=== PATIENT | male | born 1985 | race Caucasian/White ===

== ENCOUNTER 2016-09-28 02:55 | Inpatient (IN) | payer OTHER ==
[~2016-09-28] VITALS: Ht 172.7 cm; Wt 83.0 kg
[2016-09-28 03:57] LABS: BASO # 0.1 K/mm3 (0.0-0.2); EOS # 0.4 K/mm3 (0.0-0.50); EOS % 4.6 % (0.0-3.0); LARGE UNSTAINED CELL # 0.2 K/mm3 (0.0-0.4); LARGE UNSTAINED CELL % 1.8 % (0.0-4.0); LYMPH % 22.4 % (24.0-44.0); MEAN CORPUSCULAR HEMOGLOBIN 29.9 pg (27.0-33.0); MEAN CORPUSCULAR HGB CONC 33.4 g/dl (32.0-36.5); MEAN CORPUSCULAR VOLUME 89.6 fl (80.0-96.0); MONO # 0.5 K/mm3 (0.0-0.8); MONO % 6.5 % (0.0-5.0); NEUTROPHILS # 5.2 K/mm3 (1.8-7.7); NEUTROPHILS % 63.7 % (36.0-66.0); PLATELET COUNT, AUTOMATED 146 k/mm3 (150-450); RED CELL DISTRIBUTION WIDTH 12.7 % (11.5-14.5); WHITE BLOOD COUNT 8.2 K/mm3 (4.0-10.0)
[2016-09-28] MEDS ORDERED: ONDANSETRON 4MG/2ML VIAL (J2405) As Ordered ONE (04:05)
[2016-09-28] MEDS ORDERED: MORPHINE 4 MG/ML 1ML SYRINGE As Ordered ONE ×2 (04:06→05:56)
[2016-09-28 04:21] LABS: ANION GAP 7 MEQ/L (8-16); BLOOD UREA NITROGEN 16 MG/DL (7-18); CALCIUM LEVEL 8.7 MG/DL (8.5-10.1); CARBON DIOXIDE LEVEL 31 MEQ/L (21-32); CHLORIDE LEVEL 104 MEQ/L (98-107); CREATININE FOR GFR 0.98 MG/DL (0.70-1.30); GLOMERULAR FILTRATION RATE > 60.0 (>60); GLUCOSE, FASTING 96 MG/DL (70-105); POTASSIUM SERUM 4.3 MEQ/L (3.5-5.1); SODIUM LEVEL 142 MEQ/L (136-145)
[2016-09-28] MEDS ORDERED: ISOVUE-370 76% 100ML VIAL (Q9967) As Ordered ONE (04:46)
--- NOTE | 2016-09-28 05:10 | REPUSA ---
CLINICAL HISTORY: Edema. COMMENTS: Real time sonography with duplex doppler of the left lower extremity was performed with attention to the major deep venous structures. Evaluation reveals the left common femoral, superficial femoral and popliteal veins to be completely compressible without intraluminal thrombus. There is normal spontaneous phasic flow and augmentation. The greater saphenous/common femoral vein junction is patent. IMPRESSION: No evidence of DVT in left lower extremity.. Thank you for your kind referral of this patient.
--- NOTE | 2016-09-28 05:30 | REPUSA ---
CLINICAL HISTORY: Dyspnea, exclude PE. TECHNIQUE: Multiple incremental axial, coronal and oblique images are obtained from the thoracic inle t to the upper abdomen. Intravenous contrast material was administered as per pulmonary embolism prot ocol. COMMENTS: Segmental branches pulmonary emboli in the right lower lobe. Associated small right pleural effusion. Associated subpleural consolidation in the right lower lobe. There is excellent opacification of the remaining pulmonary arterial system without evidence for anot her pulmonary embolism. Aorta is of normal caliber without evidence for dissection or aneurysm. There is no evidence of pleural or parenchymal mass. There are no pleural effusions. There is no evid ence of hilar or mediastinal lymphadenopathy. The heart and great vessels are within normal limits. Images of the upper abdomen demonstrate no evidence of adrenal mass. The bony structures are free of lytic or blastic lesions. IMPRESSION: Segmental branches pulmonary emboli in the right lower lobe. Associated small right pleural effusion. Associated subpleural consolidation in the right lower lobe. Findings are suggestive of developing in farction. Thank you for your kind referral of this patient.
[2016-09-28] MEDS ORDERED: TYLE1TAB5 PO (06:37)
[2016-09-28 06:39] LABS: INR 1.05
[2016-09-28] MEDS ORDERED: HEPARIN SOD (PORCINE) 5000 UNITS/ML VIAL IV PRN (07:00)
[2016-09-28] MEDS ORDERED: HEPARIN 25,000 UNITS/250 ML D5W BAG (100 UNITS/ML) As Ordered ONE (07:08)
[2016-09-28] MEDS ORDERED: HEPARIN SOD (PORCINE) 5000 UNITS/ML VIAL As Ordered ONE (07:08)
[2016-09-28] MEDS ORDERED: ACETAMINOPHEN 325 MG TAB As Ordered ONE ×2 (07:42→11:32)
[2016-09-28] MEDS ORDERED: MORPHINE 4 MG/ML 1ML SYRINGE IV PRN (08:00)
[2016-09-28] MEDS ORDERED: MOM 30ML SUSPENSION UDC PO PRN (08:00)
--- NOTE | 2016-09-28 08:47 | HPE ---
DATE OF ADMISSION: 09/28/2016 PRIMARY CARE PROVIDER: Teto Cormier CHIEF COMPLAINT: Chest pain. BRIEF SUMMARY OF PRESENTATION: This is a 31-year-old who approximately one week ago developed left leg pain that became worse on Sunday. Yesterday at 5:00 p.m., he had pain in his right chest that felt as though someone had stuck a knife in his side. He went to bed at 2:00 a.m. He woke up when he could barely breathe. Came to the emergency department for evaluation and was found to have a right sided pulmonary embolism and I was called for admission. 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 In the last week he has driven at least 24 hours and in fact one night slept in his car. He has no previous history of clots. No history of bleeding disorder and is exceedingly healthy. He had an allergy to the small pox vaccine. Currently takes no medications, herbal, or supplements. PAST MEDICAL HISTORY: Has no significant past medical history. 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 SOCIAL HISTORY: He is a nonsmoker. Does not drink alcohol. 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 Is originally from [place]. FAMILY HISTORY: Notable for mother with diabetes at age 47. Father has had multiple myocardial infarctions at age 48. Brother is 29 with allergies. Sister who is 27, alive and well. REVIEW OF SYSTEMS: Notable for no headache. No visual change. No runny nose. No sore throat. No neck pain. No cough. He is short of breath. He is having trouble taking deep breaths due to pain on the right side. No palpitations. No orthopnea. No paroxysmal nocturnal dyspnea. No abdominal pain. No change in bowel or bladder habits. No focal weakness. No history of seizures. Otherwise, unremarkable. PHYSICAL EXAMINATION: VITAL SIGNS: Blood pressure 110/64, pulse is 52, respiratory rate is 16, temperature 98.4, pulse oximetry 96% on room air. Weight 77.1 kg. Body Mass Index (BMI) is 25.8. He is awake, appropriately interactive, pleasantly conversant, appears uncomfortable. HEENT: Head is normocephalic. Sinuses nontender. Pupils are equal, round and reactive. Anicteric, not injected. Nasal septum is midline. Mucous membranes are moist. Neck is supple. LUNGS: Breathing is symmetrical, diminished throughout. I:E ratio is 1:3. No wheezes, rales or rhonchi. He is clearly taking smaller breaths than normal. HEART: Irregular rate and rhythm. Bradycardic on my examination. ABDOMEN: Soft, doughy, nontender. EXTREMITIES: No lower extremity edema. DERMATOLOGIC EXAM: Notable for a number of high quality tattoos. PSYCHIATRIC: Normal mood and affect. LABORATORY DATA: White cell count 8.2, hemoglobin 16.2, platelets 146. INR 1.05, sodium 142, potassium 4.3, chloride 104, carbon dioxide 31, BUN 16, creatinine 0.98, glucose of 96, CK 61, troponin I less than 0.02. ASSESSMENT: This is a 31-year-old gentleman with a right sided pulmonary embolism and infarction. The patient will require a greater than two midnight hospital stay to complete his course of therapy. PLAN: 1. Hematologic. The patient has pulmonary embolism with no evidence of lower extremity deep vein thrombosis (DVT). No obvious risk factors apart from driving prolonged distances. Testicular examination done by myself was unremarkable. There is no family history of blood clots. We will continue the patient with intravenous heparin, as suggested by the covering inner tube cutter last night. We have started Coumadin, and we will send a hypercoagulability workup, results of which may not all be available before his discharge. He is at risk for pneumonia and bleeding based on his splinting and infarct, respectively. I believe at this point the risk of pneumonia is significant and I have ordered a half dose of Toradol and an incentive spirometer. I have encouraged him to be up and walking around. 2. Deep vein thrombosis (DVT) prophylaxis will be full dose heparin. I have signed this patient out to Dr. Mccoy.
[2016-09-28 08:50] VITALS: BP 124/74
--- NOTE | 2016-09-28 08:59 | ECGEPIP ---
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
--- NOTE | 2016-09-28 12:17 | EDDOCDS ---
Physician Documentation [facility] Name: Abdelrahman Gonzalez Age: 31 yrs Sex: Male : 1985 Arrival Date: 09/28/2016 Time: 02:55 Bed 14 Private MD: Disposition: 09/28/16 06:23 Hospitalization ordered by Dionicio Plummer for Inpatient Admission. Preliminary diagnosis is Pulmonary embolism - right, with infarction. - Bed requested for 4 [place]. - Status is Inpatient Admission. ms2 - Condition is Stable. - Problem is an acute exacerbation. - Symptoms have improved. Historical: - Allergies: small pox vacine; - Home Meds: 1. none - PMHx: none; - PSHx: cauliflower ear repair twice; - Social history: Smoking status: Patient states was never smoker of tobacco. No barriers to communication noted, The patient speaks fluent [place], Speaks appropriately for age. - Family history: Not pertinent. - : The pt / caregiver states he / she is not on anticoagulants. Home medication list is obtained from the patient. - Exposure Risk Screening:: None identified. Vital Signs: 09/28 03:03 BP 125 / 79; Pulse 85; Resp 20; Temp 98.4(TE); Pulse Ox 99% on R/A; Weight 77.11 kg / sls1 170 lbs; Height 5 ft. 8 in. (172.72 cm); Pain 8/10; 03:39 BP 111 / 72 (auto/); cf2 03:41 Pulse 62 MON; Pulse Ox 98% ; cf2 03:41 BP 110 / 64; Resp 16; Pain 3/10; cf2 03:43 Pulse 62 MON; Pulse Ox 98% ; cf2 03:50 Pulse 60 MON; Pulse Ox 97% ; cf2 03:57 Pulse 58 MON; Pulse Ox 97% ; cf2 04:04 Pulse 56 MON; Pulse Ox 97% ; cf2 04:11 Pulse 56 MON; Pulse Ox 96% ; cf2 04:18 Pulse 56 MON; Pulse Ox 96% ; cf2 04:26 Pulse 54 MON; Pulse Ox 95% ; cf2 04:29 Pulse 54 MON; Pulse Ox 96% ; cf2 04:41 Pulse 50 MON; Pulse Ox 95% ; cf2 04:49 Pulse 54 MON; Pulse Ox 96% ; cf2 05:01 Pulse 54 MON; Pulse Ox 95% ; cf2 05:11 Pulse 48 MON; Pulse Ox 95% ; cf2 05:21 Pulse 52 MON; Pulse Ox 96% ; cf2 05:33 Pulse 48 MON; Pulse Ox 96% ; cf2 05:43 Pulse 48 MON; Pulse Ox 96% ; cf2 05:49 Pulse 52 MON; Pulse Ox 96% ; cf2 07:22 BP 132 / 71 (auto/); ead 07:29 Pulse 84 MON; Resp 16; Pulse Ox 98% on R/A; ead 07:44 BP 139 / 66 (auto/); ead 07:45 Pulse 72 MON; Pulse Ox 96% ; ead 08:24 BP 128 / 75 (auto/); ead 08:25 Pulse 78 MON; Pulse Ox 95% ; ead 08:30 Pain 3/10; ead 08:37 BP 124 / 74 (auto/); ead 08:38 Pulse 78 MON; Pulse Ox 96% ; ead 09:07 BP 133 / 63 (auto/); ead 09:08 Pulse 76 MON; Pulse Ox 94% ; ead 09:37 BP 107 / 54 (auto/); ead 09:38 Pulse 74 MON; Resp 16; Pulse Ox 97% on R/A; ead 10:52 BP 138 / 59; Pulse 74; Resp 18; Temp 98.8(TE); Pulse Ox 94% on R/A; Pain 7/10; rn1 11:40 BP 152 / 77; Pulse 79; Resp 20 S; Temp 96(T); Pulse Ox 95% on R/A; ms2 03:03 Body Mass Index 25.85 (77.11 kg, 172.72 cm) sls1 MDM: 03:03 ECG WITH READING ER PHYS+CARDIAG ordered. EDMS 03:50 NS 0.9% 1000 ml IV at 100 mL/hr continuous ordered. mm11 03:50 Ondansetron 4 mg IVP once ordered. 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 mm11 03:50 IV Saline Lock ordered. mm11 03:50 Rhythm Strip to chart ordered. mm11 03:50 Undress patient appropriately for examination ordered. mm11 03:50 morphine 4 mg IVP every 30 minutes; Document pain score/vitals after each dose (Hold if mm11 SBP < 90mmHg) x2 ordered. 03:51 Basic Metabolic Profile Ordered. EDMS 03:51 CBC with Diff Ordered. EDMS 03:51 Cardiac Injury Profile Ordered. EDMS 03:51 Troponin Ordered. EDMS 03:52 DVT US Lower Ordered. EDMS 04:22 Basic Metabolic Profile Reviewed. mm11 04:22 CBC with Diff Reviewed. mm11 04:22 Troponin Reviewed. mm11 04:24 CT Chest Angio R/O PE Ordered. EDMS 04:44 Basic Metabolic Profile Reviewed. mm11 04:44 Cardiac Injury Profile Reviewed. mm11 04:44 Troponin Reviewed. mm11 05:22 Financial registration complete. pm4 05:22 [facility] Payment Agreement was scanned into [employer] and attached to record. pm4 06:21 heparin (Thrombolytic Protocol, 12 units/kg/hr)) 99262 units IV at 1000 units/hr once; mm11 Max. dose 1000units/hr. No Lovenox past 18hrs/ draw labs. ordered. 06:21 heparin (Thrombolytic Protocol, 60 units/kg)) 4000 units IVP once; max 4000 units. mm11 Ensure no Lovenox in past 18hr, labs drawn ordered. 06:22 BED REQUEST+ADM ordered. EDMS 06:22 Pt & Aptt Ordered. EDMS 06:35 DVT US Lower Reviewed. mm11 06:35 CT Chest Angio R/O PE Reviewed. mm11 07:07 Pt & Aptt Reviewed. mm11 07:08 Acetaminophen Tablet 650 mg PO once ordered. mm11 07:47 ANTINUCLEAR ANTIBODIES Ordered. EDMS 07:48 ANTI-CARDIOLIPIN ANTIBODIES Ordered. EDMS 07:48 ANTI-NEUTROPHIL CYTOPLASMIC AB Ordered. EDMS 07:48 ANTI-SJOGRENS A & B ANTIBODIES Ordered. EDMS 07:48 ERYTHROCYTE SEDIMENTATION RATE Ordered. EDMS 07:48 C REACTIVE PROTEIN QUANTITATIV Ordered. EDMS 07:48 PROTEIN C ANTIGEN Ordered. EDMS 07:48 PROTEIN S ANTIGEN(TOT&FREE) Ordered. EDMS 07:48 ANTI THROMBIN 3 PANEL (AG/AC) Ordered. EDMS 07:48 HOMOCYSTEINE Ordered. EDMS 07:48 FACTOR V LEIDEN Ordered. EDMS 07:48 FACTOR II PROTHROMBIN GENE AN Ordered. EDMS 07:48 PARTIAL THROMBOPLASTIN TIME Ordered. EDMS 07:49 PARTIAL THROMBOPLASTIN TIME Ordered. EDMS 07:49 PARTIAL THROMBOPLASTIN TIME Ordered. EDMS 07:50 Admission / Observation Status ordered. EDMS 07:56 REGULAR DIET ordered. EDMS 08:29 Lupus Type Anticoagulant Ordered. EDMS 11:38 Acetaminophen Tablet 650 mg PO once ordered. ms2 Administered Medications: 04:10 Drug: NS 0.9% 1000 ml [sodium chloride 0.9 % intravenous solution] Route: IV; Rate: 100 cf2 mL/hr; Site: left antecubital; 07:15 Follow up: IV Status: Completed infusion; IV Intake: 1000ml ; 1L NS found to be infused ead upon this nurse assuming care of pt. 04:10 Drug: Ondansetron 4 mg [ondansetron HCl 2 mg/mL intravenous solution (2 mL)] Route: cf2 IVP; Site: left antecubital; 06:28 Follow up: Response: Pain is decreased cf2 04:10 Drug: morphine 4 mg [morphine 4 mg/mL intravenous cartridge (1 mL)] Route: IVP; Site: cf2 left antecubital; 06:00 Drug: morphine 4 mg [morphine 4 mg/mL intravenous cartridge (1 mL)] Route: IVP; Site: cf2 left antecubital; 06:28 Follow up: Response: Pain is decreased cf2 07:26 Drug: heparin (Thrombolytic Protocol, 60 units/kg)) 4000 units [heparin (porcine) 5,000 ead unit/mL injection solution (0.8 mL)] {Co-Signature: diaz (Christen Lopez RN).} Route: IVP; Site: left antecubital; 07:50 Follow up: Response: No Adverse Reaction ead 07:28 Drug: heparin (Thrombolytic Protocol, 12 units/kg/hr)) 54270 units [heparin (porcine) ead 25,000 unit/250 mL (100 unit/mL) in dextrose 5 % IV] {Co-Signature: diaz (Christen Lopez RN).} Route: IV; Rate: 1000 units/hr; Site: left antecubital; 07:45 Drug: Acetaminophen 650 mg [acetaminophen 325 mg tablet (2 tabs)] Route: PO; ead 08:30 Follow up: Pain 3/10 Adult; Response: No Adverse Reaction; Pain is decreased ead 11:38 Drug: Acetaminophen 650 mg [acetaminophen 325 mg tablet (2 tabs)] Route: PO; ms2 Signatures: Dispatcher [employer] EDMS Erma Archibald RN RN kcs Harish Bingham RN RN ms2 Luis Avelar, DO DO mm11 Daisy Pizano RN RN sls1 Harish Callahan, RN RN mts Val WhiteRN RN cf2 Amor Gregorio, Reg Reg pm4 Deandra Lord RN, RN jjr The chart was reviewed and I authenticate all verbal orders and agree with the evaluation and treatment provided.Corrections: (The following items were deleted from the chart) 07:56 07:47 2 GRAM SODIUM DIET ordered. EDMS EDMS 08:29 07:47 Lupus Type Anticoagulant ordered. EDMS EDMS Attachments: 05:22 [facility] Payment Agreement pm4 MTDD
--- NOTE | 2016-09-28 12:17 | EDDOCDS ---
Nurse's Notes [facility] Name: Abdelrahman Gonzalez Age: 31 yrs Sex: Male : 1985 Arrival Date: 09/28/2016 Time: 02:55 Bed 14 Private MD: Diagnosis: Pulmonary embolism-right, with infarction Presentation: 09/28 03:01 Presenting complaint: Patient states: started with a pain in his leg last week that sls1 traveled to his knee, traveled to rib area tonight and now is generalized to his chest, reports pain constant, sharp worse with breathing. Aspirin was not taken prior to arrival. 03:01 Acuity: NATALIE Level 3 sls1 03:01 Method Of Arrival: Walkin/Carried/Asstd sls1 03:02 Suicide/Homicide risk assessment- the patient denies having any suicidal and/or sls1 homicidal ideations and does not present with any other emotional, behavioral or mental health complaints. 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 Transition of care: patient was not received from another setting of care. 03:25 Adult Sepsis Screening: The patient does not have new or worsening altered mentation. cf2 Patient's respiratory rate is less than 22. Systolic blood pressure is greater than 100. Patient has a qSOFA score of 0- Negative Sepsis Screen. Triage Assessment: 03:03 General: Appears in no apparent distress, Behavior is appropriate for age, cooperative. sls1 Pain: Location: chest Pain currently is 7 out of 10 on a pain scale. Pain does not radiate. Pt Declines HIV testing. The patient is triaged at the bedside. See Assessment in Nurses Notes section of ED record. Neurological: No deficits noted. Cardiovascular: Chest pain is described as Pain is 8 out of 10 on a pain scale. radiates Does not radiate. episodes are continuous began tonight is aggravated by breathing. Respiratory: Reports shortness of breath at rest on exertion. Derm: No deficits noted. Historical: - Allergies: small pox vacine; - Home Meds: 1. none - PMHx: none; - PSHx: cauliflower ear repair twice; - Social history: Smoking status: Patient states was never smoker of tobacco. No barriers to communication noted, The patient speaks fluent Turkish, Speaks appropriately for age. - Family history: Not pertinent. - : The pt / caregiver states he / she is not on anticoagulants. Home medication list is obtained from the patient. - Exposure Risk Screening:: None identified. Screenin:30 Screening information is obtained from the patient. Fall risk: No risks identified. cf2 Assistance ADL's: requires no assistance with activities of daily living. Abuse/DV Screen: The patient / caregiver reports he/she is: not in a situation that causes fear, pain or injury. Nutritional screening: No deficits noted. Advance Directives: Further advance directive information is declined. home support is adequate. Assessment: 03:30 General: Appears in no apparent distress, comfortable, Behavior is appropriate for age, cf2 cooperative. Pain: Location: chest. Neurological: No deficits noted. EENT: No deficits noted. Cardiovascular: No deficits noted. Rhythm is regular. Respiratory: No deficits noted. GI: No deficits noted. : No deficits noted. Derm: No deficits noted. Musculoskeletal: No deficits noted. Injury Description: No known injury. 06:49 Reassessment: Patient appears in no apparent distress at this time. Patient states cf2 symptoms have not improved. Adult Sepsis Screening: The patient does not have new or worsening altered mentation. Patient's respiratory rate is less than 22. Systolic blood pressure is greater than 100. Patient has a qSOFA score of 0- Negative Sepsis Screen. 07:28 General: Appears in no apparent distress, comfortable, Behavior is appropriate for age, ead cooperative. Pain: Location: anterior aspect of right upper chest and right breast. Neurological: Level of Consciousness is awake, alert, obeys commands, Oriented to person, place, time. Cardiovascular: Rhythm is sinus rhythm. Respiratory: Reports pain with respiration. Derm: Skin is pink, warm & dry. 07:31 General: Dr. Plummer at bedside to examine pt. Heparin drip infusing as ordered and ead verified by second nurse. . 08:30 General: Appears in no apparent distress, comfortable, Behavior is appropriate for age, ead cooperative. Neurological: Level of Consciousness is awake, alert, Oriented to person, place, time, Reports headache has improved after tylenol. Cardiovascular: Rhythm is sinus rhythm. Respiratory: Airway is patent Respiratory effort is even, unlabored. Derm: Skin is pink, warm & dry. 09:35 General: Appears in no apparent distress, comfortable, Behavior is appropriate for age, ead cooperative, pleasant, pt updated on bed status for admission. Cardiovascular: Rhythm is sinus rhythm. Respiratory: Airway is patent Respiratory effort is even, unlabored. Derm: Skin is pink, warm & dry. 10:30 General: Appears in no apparent distress, comfortable, Behavior is appropriate for age, ead cooperative. Neurological: No deficits noted. Cardiovascular: Rhythm is sinus rhythm. Respiratory: Airway is patent Respiratory effort is even, unlabored. Derm: Skin is pink, warm & dry. 11:00 General: SBAR faxed and tubed to PCU. ead 11:36 Adult Sepsis Screening: The patient does not have new or worsening altered mentation. ms2 Patient's respiratory rate is less than 22. Systolic blood pressure is greater than 100. Patient has a qSOFA score of 0- Negative Sepsis Screen. General: Appears in no apparent distress, Behavior is cooperative. Neurological: Level of Consciousness is awake, alert, obeys commands. Respiratory: No deficits noted. Airway is patent Respiratory effort is even, unlabored, Respiratory pattern is regular, symmetrical. Derm: Skin is pink, warm & dry. Musculoskeletal: Range of motion intact in all extremities. 11:38 General: pt medicated for headache--6/10 headache and 8 10 chest if deep inspiration. ms2 Neurological: Level of Consciousness is awake, alert, obeys commands. Respiratory: No deficits noted. Airway is patent Respiratory effort is even, unlabored, Respiratory pattern is regular, symmetrical. GI: Abdomen is flat, non- distended. Derm: Skin is pink, warm & dry. Musculoskeletal: Range of motion intact in all extremities. Vital Signs: 03:03 BP 125 / 79; Pulse 85; Resp 20; Temp 98.4(TE); Pulse Ox 99% on R/A; Weight 77.11 kg; sls1 Height 5 ft. 8 in. (172.72 cm); Pain 8/10; 03:39 BP 111 / 72 (auto/); cf2 03:41 Pulse 62 MON; Pulse Ox 98% ; cf2 03:41 BP 110 / 64; Resp 16; Pain 3/10; cf2 03:43 Pulse 62 MON; Pulse Ox 98% ; cf2 03:50 Pulse 60 MON; Pulse Ox 97% ; cf2 03:57 Pulse 58 MON; Pulse Ox 97% ; cf2 04:04 Pulse 56 MON; Pulse Ox 97% ; cf2 04:11 Pulse 56 MON; Pulse Ox 96% ; cf2 04:18 Pulse 56 MON; Pulse Ox 96% ; cf2 04:26 Pulse 54 MON; Pulse Ox 95% ; cf2 04:29 Pulse 54 MON; Pulse Ox 96% ; cf2 04:41 Pulse 50 MON; Pulse Ox 95% ; cf2 04:49 Pulse 54 MON; Pulse Ox 96% ; cf2 05:01 Pulse 54 MON; Pulse Ox 95% ; cf2 05:11 Pulse 48 MON; Pulse Ox 95% ; cf2 05:21 Pulse 52 MON; Pulse Ox 96% ; cf2 05:33 Pulse 48 MON; Pulse Ox 96% ; cf2 05:43 Pulse 48 MON; Pulse Ox 96% ; cf2 05:49 Pulse 52 MON; Pulse Ox 96% ; cf2 07:22 BP 132 / 71 (auto/); ead 07:29 Pulse 84 MON; Resp 16; Pulse Ox 98% on R/A; ead 07:44 BP 139 / 66 (auto/); ead 07:45 Pulse 72 MON; Pulse Ox 96% ; ead 08:24 BP 128 / 75 (auto/); ead 08:25 Pulse 78 MON; Pulse Ox 95% ; ead 08:30 Pain 3/10; ead 08:37 BP 124 / 74 (auto/); ead 08:38 Pulse 78 MON; Pulse Ox 96% ; ead 09:07 BP 133 / 63 (auto/); ead 09:08 Pulse 76 MON; Pulse Ox 94% ; ead 09:37 BP 107 / 54 (auto/); ead 09:38 Pulse 74 MON; Resp 16; Pulse Ox 97% on R/A; ead 10:52 BP 138 / 59; Pulse 74; Resp 18; Temp 98.8(TE); Pulse Ox 94% on R/A; Pain 7/10; rn1 11:40 BP 152 / 77; Pulse 79; Resp 20 S; Temp 96(T); Pulse Ox 95% on R/A; ms2 03:03 Body Mass Index 25.85 (77.11 kg, 172.72 cm) [facility] Vitals: 03:03 Log In Time: September 28, 2016 at 02:55. [facility] ED Course: 02:56 Patient visited by Kaitlyn Schulz RegJesse hs2 02:56 Patient moved to Waiting hs2 03:01 Patient moved to Triage 3 sls1 03:02 Triage Initiated sls1 03:06 Patient moved to 14 sls1 03:14 Patient visited by Quinton Orozco PCA. jmv 03:14 EKG done. (by ED staff). Reviewed by Tita Avelar DO. jmv 03:25 Val White,ARTURO is Primary Nurse. cf2 03:25 Patient visited by Val White,ARTURO. cf2 03:25 Patient visited by Val White,ARTURO. cf2 03:29 Patient visited by Val White RN. cf2 03:30 The patient / caregiver is instructed regarding the plan of care and ED course. Patient cf2 has correct armband on for positive identification. Placed in gown. Bed in low position. Call light in reach. Side rails up X 1. Side rails up X2. groundwater monitoring technician on. Pulse ox on. NIBP on. Property :Personal belongings accompany Pt. Door closed. Noise minimized. Visitors limited. Lights dimmed. Moved to private room. Verbal reassurance given. Warm blanket given. Pillow given. Head of bed elevated. Diet: Patient is NPO. 03:30 No procedures done that require assistance. cf2 03:33 Patient visited by Val White RN. cf2 03:40 Tita Avelar DO is Attending Physician. mm11 03:40 Patient visited by Tita Avelar DO. mm11 03:41 Inserted saline lock: 20 gauge in left antecubital area and blood collected. The cf2 patient tolerated the procedure well. 03:49 Patient visited by Tita Avelar DO. mm11 03:53 Patient visited by Chidi Stroud PCA. mdr 03:53 groundwater monitoring technician on. Pulse ox on. NIBP on. mdr 04:10 Patient visited by Val White RN. cf2 04:26 Patient moved to Ultrasound br3 04:41 Patient moved to 14 br3 05:02 Patient visited by Val White RN. cf2 05:12 Patient visited by Val White RN. cf2 05:22 [facility] Payment Agreement was scanned into [employer] and attached to record. pm4 05:31 Patient name changed from Abdelrahman\S\\S\Zararauskas\S\ to Abdelrahman\S\Pepe\S\Jelenaatakas. EDMS 05:40 DVT US Lower Returned. EDMS 05:40 CT Chest Angio R/O PE Returned. EDMS 05:56 Patient visited by Val White,ARTURO. cf2 06:23 Dionicio Plummer MD is Hospitalizing Provider. mm11 06:24 Patient visited by Val White RN. cf2 06:49 Patient visited by Val White RN. cf2 06:59 Deandra Lord,ARTURO is Primary Nurse. ead 09:01 EKG-ADULT Returned. EDMS 09:45 Patient visited by Deandra Lord RN. ead 11:21 Patient visited by Harish Bingham RN. ms2 11:27 Patient visited by Harish Bingham RN. ms2 11:27 floor ready for pt. ms2 11:40 The patient / caregiver is instructed regarding the plan of care and ED course. ms2 11:40 IV is patent, is intact, is free of redness or swelling. solution is infusing as ms2 ordered. heparin drip on a pump. 11:46 Harish Bingham,ARTURO is Primary Nurse. ms2 Administered Medications: 04:10 Drug: NS 0.9% 1000 ml [sodium chloride 0.9 % intravenous solution] Route: IV; Rate: 100 cf2 mL/hr; Site: left antecubital; 07:15 Follow up: IV Status: Completed infusion; IV Intake: 1000ml ; 1L NS found to be infused ead upon this nurse assuming care of pt. 04:10 Drug: Ondansetron 4 mg [ondansetron HCl 2 mg/mL intravenous solution (2 mL)] Route: cf2 IVP; Site: left antecubital; 06:28 Follow up: Response: Pain is decreased cf2 04:10 Drug: morphine 4 mg [morphine 4 mg/mL intravenous cartridge (1 mL)] Route: IVP; Site: cf2 left antecubital; 06:00 Drug: morphine 4 mg [morphine 4 mg/mL intravenous cartridge (1 mL)] Route: IVP; Site: cf2 left antecubital; 06:28 Follow up: Response: Pain is decreased cf2 07:26 Drug: heparin (Thrombolytic Protocol, 60 units/kg)) 4000 units [heparin (porcine) 5,000 ead unit/mL injection solution (0.8 mL)] {Co-Signature: diaz (Christen Lopez RN).} Route: IVP; Site: left antecubital; 07:50 Follow up: Response: No Adverse Reaction ead 07:28 Drug: heparin (Thrombolytic Protocol, 12 units/kg/hr)) 46018 units [heparin (porcine) ead 25,000 unit/250 mL (100 unit/mL) in dextrose 5 % IV] {Co-Signature: diaz (Christen Lopez RN).} Route: IV; Rate: 1000 units/hr; Site: left antecubital; 07:45 Drug: Acetaminophen 650 mg [acetaminophen 325 mg tablet (2 tabs)] Route: PO; ead 08:30 Follow up: Pain 10 Adult; Response: No Adverse Reaction; Pain is decreased ead 11:38 Drug: Acetaminophen 650 mg [acetaminophen 325 mg tablet (2 tabs)] Route: PO; ms2 Intake: 07:15 IV: 1000.00ml; Total: 1000.00ml. ead 11:40 PO: 60.00ml; Total: 1060.00ml. ms2 11:43 PO: 460.00ml; IV: 42.50ml; Total: 1562.50ml. ms2 Output: 11:43 Urine: 800.00ml (Voided); Total: 800.00ml. ms2 Order Results: Lab Order: Basic Metabolic Profile; SPEC'M 09/28/16 03:47 Test: GLUCOSE, FASTING; Value: 96; Range: 70-105; Units: MG/DL; Status: F Test: BLOOD UREA NITROGEN; Value: 16; Range: 7-18; Units: MG/DL; Status: F Test: CREATININE FOR GFR; Value: 0.98; Range: 0.70-1.30; Units: MG/DL; Status: F Test: GLOMERULAR FILTRATION RATE; Value: > 60.0; Range: >60; Status: F Test: SODIUM LEVEL; Value: 142; Range: 136-145; Units: MEQ/L; Status: F Test: POTASSIUM SERUM; Value: 4.3; Range: 3.5-5.1; Units: MEQ/L; Status: F Test: CHLORIDE LEVEL; Value: 104; Range: 98-107; Units: MEQ/L; Status: F Test: CARBON DIOXIDE LEVEL; Value: 31; Range: 21-32; Units: MEQ/L; Status: F Test: ANION GAP; Value: 7; Range: 8-16; Abnormal: Below low normal; Units: MEQ/L; Status: F Test: CALCIUM LEVEL; Value: 8.7; Range: 8.5-10.1; Units: MG/DL; Status: F Test Note: ; Units are mL/min/1.73 m2 Chronic Kidney Disease Staging per NKF: Stage I & II GFR >=60 Normal to Mildly Decreased Stage III GFR 30-59 Moderately Decreased Stage IV GFR 15-29 Severely Decreased Stage V GFR <15 Very Little GFR Left ESRD GFR <15 on NON CATEGORICAL PRESCHOOL TEACHER Lab Order: CBC with Diff; SPEC'M 09/28/16 03:47 Test: WHITE BLOOD COUNT; Value: 8.2; Range: 4.0-10.0; Units: K/mm3; Status: F Test: RED BLOOD COUNT; Value: 5.41; Range: 4.30-6.10; Units: M/mm3; Status: F Test: HEMOGLOBIN; Value: 16.2; Range: 14.0-18.0; Units: g/dl; Status: F Test: HEMATOCRIT; Value: 48.5; Range: 42.0-52.0; Units: %; Status: F Test: MEAN CORPUSCULAR VOLUME; Value: 89.6; Range: 80.0-96.0; Units: fl; Status: F Test: MEAN CORPUSCULAR HEMOGLOBIN; Value: 29.9; Range: 27.0-33.0; Units: pg; Status: F Test: MEAN CORPUSCULAR HGB CONC; Value: 33.4; Range: 32.0-36.5; Units: g/dl; Status: F Test: RED CELL DISTRIBUTION WIDTH; Value: 12.7; Range: 11.5-14.5; Units: %; Status: F Test: PLATELET COUNT, AUTOMATED; Value: 146; Range: 150-450; Abnormal: Below low normal; Units: k/mm3; Status: F Test: NEUTROPHILS %; Value: 63.7; Range: 36.0-66.0; Units: %; Status: F Test: LYMPH %; Value: 22.4; Range: 24.0-44.0; Abnormal: Below low normal; Units: %; Status: F Test: MONO %; Value: 6.5; Range: 0.0-5.0; Abnormal: Above high normal; Units: %; Status: F Test: EOS %; Value: 4.6; Range: 0.0-3.0; Abnormal: Above high normal; Units: %; Status: F Test: BASO %; Value: 1.0; Range: 0.0-1.0; Units: %; Status: F Test: LARGE UNSTAINED CELL %; Value: 1.8; Range: 0.0-4.0; Units: %; Status: F Test: NEUTROPHILS #; Value: 5.2; Range: 1.8-7.7; Units: K/mm3; Status: F Test: LYMPH #; Value: 2.0; Range: 1.5-4.5; Units: K/mm3; Status: F Test: MONO #; Value: 0.5; Range: 0.0-0.8; Units: K/mm3; Status: F Test: EOS #; Value: 0.4; Range: 0.0-0.50; Units: K/mm3; Status: F Test: BASO #; Value: 0.1; Range: 0.0-0.2; Units: K/mm3; Status: F Test: LARGE UNSTAINED CELL #; Value: 0.2; Range: 0.0-0.4; Units: K/mm3; Status: F Lab Order: Cardiac Injury Profile; SPEC'M 09/28/16 03:47 Test: CPK CREATINE PHOSPHOKINASE; Value: 61; Range: 39-308; Units: U/L; Status: F Test: CK-MB VALUE MASS; Value: 1.0; Range: 0.0-3.6; Units: NG/ML; Status: F Test: MB/CK RELATIVE INDEX; Value: 1.63; Range: < OR =4; Status: F Test Note: ; DIAGNOSIS CRITERIA MMB ng/ml Relative Index (RI) NON-AMI < or = 5 N/A CONTRERAS ZONE > 5 < or = 4 AMI > 5 > 4 Lab Order: Troponin; SPEC'M 09/28/16 03:47 Test: TROPONIN I; Value: < 0.02; Range: < 0.10; Units: NG/ML; Status: F Test Note: ; Troponin I Reference Interval for Siemens [place] LOCI: 99th Percentile= 0.00-0.045 ng/ml Risk Stratification: <= 0.10 ng/ml Decreased Risk for Adverse Clinical Events. 0.10-1.50 ng/ml Increased Risk for Adverse Clinical Events. Evaluation of additional criterion and/or repeat testing in 2-6 hours is suggested to rule out myocardial damage. >= 1.50 ng/ml Indicative of Myocardial Injury. Lab Order: Pt & Aptt; [facility] 09/28/16 03:47 Test: PROTHROMBIN TIME; Value: 13.8; Range: 12.3-14.5; Units: SECONDS; Status: F Test: INR; Value: 1.05; Status: F Test: PARTIAL THROMBOPLASTIN TIME; Value: 26.8; Range: 26.6-37.1; Units: SECONDS; Status: F Test Note: ; THERAPUTIC HUMAN INR VALUES INDICATIONS NORMAL RANGES PROPHYLAXIS/TREATMENT OF: VENOUS THROMBOSIS 2.0-3.0 PULMONARY EMBOLISM 2.0-3.0 PREVENTION OF SYSTEMIC EMBOLISM FROM: TISSUE HEART VALVES 2.0-3.0 ACUTE MYOCARDIAL INFARCTION 2.0-3.0 VALVULAR HEART DISEASE 2.0-3.0 ATRIAL FIBRILLATION 2.0-3.0 MECHANICAL VALVES(HIGH RISK) 2.5-3.5 RECURRENT MYOCARDIAL INFARCTION 2.5-3.5 Lab Order: ERYTHROCYTE SEDIMENTATION RATE; [facility] 09/28/16 08:15 Test: ERYTHROCYTE SEDIMENTATION RATE; Value: 8; Range: 0-15; Units: mm/hr; Status: F Lab Order: C REACTIVE PROTEIN QUANTITATIV; [facility] 09/28/16 08:14 Test: C REACTIVE PROTEIN QUANTITATIV; Value: 1.10; Range: 0.00-0.30; Abnormal: Above high normal; Units: MG/DL; Status: F Lab Order: PARTIAL THROMBOPLASTIN TIME; [facility] 09/28/16 08:13 Test: PARTIAL THROMBOPLASTIN TIME; Value: 91.2; Range: 26.6-37.1; Abnormal: Above high normal; Units: SECONDS; Status: F Radiology Order: EKG-ADULT Test: EKG-ADULT REASON FOR EXAMINATION: chest pain;Chest Pain; Stationary ECG Study; [facility] - ED; ; Test Date: 2016-09-28; Pat Name: ABDELRAHMAN GONZALEZ Department:; Room: -; Gender: M Clinical Support Specialist: haider; : 1985 Requested By: TITA Tineo; Order Number: [id number] Reading MD: Carlos A Sandoval; Measurements; Intervals [place]; Rate: 71 P: 32; AR: 175 QRS: 43; QRSD: 102 T: 8; QT: 370; QTc: 405; Interpretive Statements; SINUS RHYTHM; NONSPECIFIC ST T-WAVE ABNORMALITY; NO PRIORS; Electronically Signed On 09-28-2016 8:59:33 EST by Carlos A Sandoval; Radiology Order: DVT US Lower Test: DVT US Lower REASON FOR EXAMINATION: Deformity/Swelling; ; CLINICAL HISTORY: Edema.; COMMENTS:; Real time sonography with duplex doppler of the left lower extremity was performed with attention to; the major deep venous structures.; Evaluation reveals the left common femoral, superficial femoral and popliteal veins to be completely; compressible without intraluminal thrombus. There is normal spontaneous phasic flow and augmentation.; The greater saphenous/common femoral vein junction is patent.; IMPRESSION:; No evidence of DVT in left lower extremity..; Thank you for your kind referral of this patient.; ; Radiology Order: CT Chest Angio R/O PE Test: CT Chest Angio R/O PE REASON FOR EXAMINATION: Chest Pain; ; CLINICAL HISTORY: Dyspnea, exclude PE.; TECHNIQUE: Multiple incremental axial, coronal and oblique images are obtained from the thoracic inle; t to the upper abdomen. Intravenous contrast material was administered as per pulmonary embolism prot; ocol.; COMMENTS:; Segmental branches pulmonary emboli in the right lower lobe.; Associated small right pleural effusion.; Associated subpleural consolidation in the right lower lobe.; There is excellent opacification of the remaining pulmonary arterial system without evidence for anot; her pulmonary embolism. Aorta is of normal caliber without evidence for dissection or aneurysm.; There is no evidence of pleural or parenchymal mass. There are no pleural effusions. There is no evid; ence of hilar or mediastinal lymphadenopathy. The heart and great vessels are within normal limits.; Images of the upper abdomen demonstrate no evidence of adrenal mass.; The bony structures are free of lytic or blastic lesions.; IMPRESSION:; Segmental branches pulmonary emboli in the right lower lobe.; Associated small right pleural effusion.; Associated subpleural consolidation in the right lower lobe. Findings are suggestive of developing in; farction.; Thank you for your kind referral of this patient.; ; Outcome: 06:23 Decision to Hospitalize by Provider. mm11 11:41 Discharge Assessment: patient administered narcotics - yes. Patient was admitted to the [address] or transferred to another facility. The following High Risk Discharge criteria are identified: None. Admitted to Med/Surg accompanied by tech, family with patient, via stretcher, with chart. Condition: stable. CT Study completed. 12:16 Patient left the ED. [facility] [place] Signatures: Dispatcher [employer] EDMS Harish Bingham,RN RN ms2 Tita Avelar, DO DO mm11 Adele Lopez br3 Daisy Pizano RN RN sls1 Deandra Lord,RN RN Antonio Perez rn1 Chidi Stroud, CURING ROOM WORKER CURING ROOM WORKER Kaitlyn Gandhi, Reg Reg hs2 Val White,RN RN cf2 Quinton Orozco, CURING ROOM WORKER CURING ROOM WORKER Amor Ross, Reg Reg pm4 Christen Lopez RN jjr MTDD
[2016-09-28 12:20] VITALS: BP 130/72
[2016-09-28] MEDS: KETOROLAC 30 MG/ML VIAL (J1885) IV PRN ×2 (13:19→21:05)
[2016-09-28] MEDS: SENOKOT S TAB PO SCH ×2 (13:26→21:00)
[2016-09-28] MEDS: HEPARIN DRIP 25,000 UNITS in APPROPRIATE DILUENT 1 EA IV SCH (13:43)
[2016-09-28 14:00] VITALS: BP 122/56
[2016-09-28] MEDS: PERCOCET 5MG/325MG TAB PO PRN (17:42)
[2016-09-28] MEDS: WARFARIN SOD 5 MG TAB PO SCH (17:42)
[2016-09-28 22:00] VITALS: BP 115/58
[2016-09-29] MEDS: PERCOCET 5MG/325MG TAB PO PRN ×2 (03:14→15:02)
[2016-09-29] MEDS: HEPARIN DRIP 25,000 UNITS in APPROPRIATE DILUENT 1 EA IV SCH ×2 (03:23→15:37)
[2016-09-29 04:54] LABS: MEAN CORPUSCULAR HEMOGLOBIN 30.6 pg (27.0-33.0); MEAN CORPUSCULAR HGB CONC 34.4 g/dl (32.0-36.5); MEAN CORPUSCULAR VOLUME 88.8 fl (80.0-96.0); RED CELL DISTRIBUTION WIDTH 11.8 % (11.5-14.5); WHITE BLOOD COUNT 8.8 K/mm3 (4.0-10.0)
[2016-09-29 04:58] LABS: INR 1.11
[2016-09-29 05:06] LABS: ANION GAP 6 MEQ/L (8-16); BLOOD UREA NITROGEN 15 MG/DL (7-18); CALCIUM LEVEL 8.7 MG/DL (8.5-10.1); CARBON DIOXIDE LEVEL 32 MEQ/L (21-32); CHLORIDE LEVEL 103 MEQ/L (98-107); CREATININE FOR GFR 1.02 MG/DL (0.70-1.30); GLOMERULAR FILTRATION RATE > 60.0 (>60); GLUCOSE, FASTING 110 MG/DL (70-105); POTASSIUM SERUM 4.1 MEQ/L (3.5-5.1); SODIUM LEVEL 141 MEQ/L (136-145)
[2016-09-29 06:00] VITALS: BP 111/56
[2016-09-29] MEDS: KETOROLAC 30 MG/ML VIAL (J1885) IV PRN ×2 (07:45→16:27)
[2016-09-29] MEDS: SENOKOT S TAB PO SCH ×2 (08:00→20:07)
--- NOTE | 2016-09-29 13:25 | IPN ---
DATE: 09/29/2016 31-year-old gentleman seen at bedside resting comfortably. Stated that he did have some chest discomfort through the night, worse with movement and deep inspiration and pleuritic in nature. No nausea, vomiting. No change in appetite. Again, he is resting comfortably currently OBJECTIVE: Temperature is 99.2, pulse 80, respiratory rate is 17. He is able speak in complete sentences and does not appear to be labored. Blood pressure 111/56. SPO2 is 96% on room air. GENERAL: The patient appears to be in no acute distress. He is alert, oriented. HEENT: Unremarkable. LUNGS: Diminished breath sounds and wheeze on the right. HEART: Regular rate and rhythm. ABDOMEN: Soft. EXTREMITIES: No edema. No calf tenderness. LABORATORY DATA: White count 8.8, hemoglobin 14.3, platelets 162,000. Sodium 141, potassium 4.1, chloride 103, bicarbonate 32, anion gap 6, BUN is 15, creatinine 1.02, glucose is 110, INR is 1.11, PT 14.4, PTT is 55.3. ASSESSMENT AND PLAN: 1. Pulmonary embolus with pulmonary infarct. He does continue with intermittent pleuritic chest pain, which we will make modifications to this pain regimen. Continue on heparin drip with bridging to Coumadin with INR goal of 2 to 3. He is ambulating well. Encourage him to continue the use of incentive spirometer. 2. Deep vein thrombosis (DVT) prophylaxis. Again, the patient is on bridging doses of heparin and Coumadin. We will continue to follow daily PT, PTT and INR. Once he is therapeutic for 24 hours, we will discontinue the heparin drip. He will likely need to continue on Coumadin therapy for 6 months.
[2016-09-29 14:00] VITALS: BP 114/61
[2016-09-29] MEDS: WARFARIN SOD 5 MG TAB PO SCH (16:27)
[2016-09-29 18:06] LABS: INR 1.21
[2016-09-29 22:00] VITALS: BP 120/61
[2016-09-30] MEDS: PERCOCET 5MG/325MG TAB PO PRN ×3 (02:32→20:39)
[2016-09-30 06:00] VITALS: BP 120/57
[2016-09-30] MEDS: HEPARIN DRIP 25,000 UNITS in APPROPRIATE DILUENT 1 EA IV SCH ×2 (06:26→20:37)
[2016-09-30 06:36] LABS: MEAN CORPUSCULAR HGB CONC 34.6 g/dl (32.0-36.5); MEAN CORPUSCULAR VOLUME 89.7 fl (80.0-96.0); RED CELL DISTRIBUTION WIDTH 11.8 % (11.5-14.5)
[2016-09-30 06:43] LABS: ANION GAP 7 MEQ/L (8-16); BLOOD UREA NITROGEN 15 MG/DL (7-18); CALCIUM LEVEL 8.7 MG/DL (8.5-10.1); CARBON DIOXIDE LEVEL 29 MEQ/L (21-32); CHLORIDE LEVEL 105 MEQ/L (98-107); CREATININE FOR GFR 1.04 MG/DL (0.70-1.30); GLOMERULAR FILTRATION RATE > 60.0 (>60); GLUCOSE, FASTING 113 MG/DL (70-105); POTASSIUM SERUM 3.8 MEQ/L (3.5-5.1); SODIUM LEVEL 141 MEQ/L (136-145)
[2016-09-30] MEDS: SENOKOT S TAB PO SCH ×2 (08:06→20:38)
[2016-09-30] MEDS ORDERED: MOM 30ML SUSPENSION UDC PO PRN (08:30)
[2016-09-30] MEDS: DOCUSATE SODIUM 100 MG CAP PO SCH ×2 (08:43→20:38)
[2016-09-30 08:44] LABS: INR 1.2
--- NOTE | 2016-09-30 09:11 | IPN ---
DATE: 09/30/2016 This is a 31-year-old gentleman seen at bedside. No overnight issues reported. He feels that he is resting more comfortably. The pleuritic chest pain is more anterior now he feels that he has only had 1-2 bouts of it through the evening yesterday. He continues to ambulate. He denies any lightheadedness, dizziness, shortness of breath. OBJECTIVE: Temperature is 97.5, pulse 76, respiratory rate is 16, blood pressure 120/57, SpO2 is 94% on room air. GENERAL: The patient appears to be in no acute distress. He is alert, pleasant to talk to. HEENT: Unremarkable. LUNGS: Diminished right basilar breath sounds, otherwise clear. HEART: Regular rate and rhythm. ABDOMEN: Soft. EXTREMITIES: No edema. No calf tenderness. LABORATORY DATA: White count 8.0, hemoglobin 14.4, platelets 172,000. Sodium 141, potassium 3.8, chloride 105, bicarb 29, anion gap 7, BUN 15, creatinine 1.04, glucose 113, INR is 1.2. ASSESSMENT/PLAN: 1. Pulmonary embolism with pulmonary infarct. He does continue to have some intermittent pleuritic chest pain. He is doing well with the current pain regimen with Percocet and as needed morphine which he has not required any of and he only had two doses of Percocet yesterday. Will continue to bridge with heparin and Coumadin. INR goal was 2-3. I suspect that he will be there in the next 2-3 days. He is encouraged to ambulate. I encouraged incentive spirometer. 2. Deep vein thrombosis (DVT) prophylaxis as outlined above. The patient is being bridged to Coumadin. DISPOSITION: Once he is therapeutic 24 hours on his Coumadin, he will be appropriate for discharge with the followup outpatient with fingersticks an INR checks.
--- NOTE | 2016-09-30 13:16 | EDDOCDS ---
Nurse's Notes [facility] Name: Abdelrahman Gonzalez Age: 31 yrs Sex: Male : 1985 Arrival Date: 09/28/2016 Time: 02:55 Bed 14 Private MD: Diagnosis: Pulmonary embolism-right, with infarction Presentation: 09/28 03:01 Presenting complaint: Patient states: started with a pain in his leg last week that sls1 traveled to his knee, traveled to rib area tonight and now is generalized to his chest, reports pain constant, sharp worse with breathing. Aspirin was not taken prior to arrival. 03:01 Acuity: NATALIE Level 3 sls1 03:01 Method Of Arrival: Walkin/Carried/Asstd sls1 03:02 Suicide/Homicide risk assessment- the patient denies having any suicidal and/or sls1 homicidal ideations and does not present with any other emotional, behavioral or mental health complaints. 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 Transition of care: patient was not received from another setting of care. 03:25 Adult Sepsis Screening: The patient does not have new or worsening altered mentation. cf2 Patient's respiratory rate is less than 22. Systolic blood pressure is greater than 100. Patient has a qSOFA score of 0- Negative Sepsis Screen. Triage Assessment: 03:03 General: Appears in no apparent distress, Behavior is appropriate for age, cooperative. sls1 Pain: Location: chest Pain currently is 7 out of 10 on a pain scale. Pain does not radiate. Pt Declines HIV testing. The patient is triaged at the bedside. See Assessment in Nurses Notes section of ED record. Neurological: No deficits noted. Cardiovascular: Chest pain is described as Pain is 8 out of 10 on a pain scale. radiates Does not radiate. episodes are continuous began tonight is aggravated by breathing. Respiratory: Reports shortness of breath at rest on exertion. Derm: No deficits noted. Historical: - Allergies: small pox vacine; - Home Meds: 1. none - PMHx: none; - PSHx: cauliflower ear repair twice; - Social history: Smoking status: Patient states was never smoker of tobacco. No barriers to communication noted, The patient speaks fluent Malay, Speaks appropriately for age. - Family history: Not pertinent. - : The pt / caregiver states he / she is not on anticoagulants. Home medication list is obtained from the patient. - Exposure Risk Screening:: None identified. Screenin:30 Screening information is obtained from the patient. Fall risk: No risks identified. cf2 Assistance ADL's: requires no assistance with activities of daily living. Abuse/DV Screen: The patient / caregiver reports he/she is: not in a situation that causes fear, pain or injury. Nutritional screening: No deficits noted. Advance Directives: Further advance directive information is declined. home support is adequate. Assessment: 03:30 General: Appears in no apparent distress, comfortable, Behavior is appropriate for age, cf2 cooperative. Pain: Location: chest. Neurological: No deficits noted. EENT: No deficits noted. Cardiovascular: No deficits noted. Rhythm is regular. Respiratory: No deficits noted. GI: No deficits noted. : No deficits noted. Derm: No deficits noted. Musculoskeletal: No deficits noted. Injury Description: No known injury. 06:49 Reassessment: Patient appears in no apparent distress at this time. Patient states cf2 symptoms have not improved. Adult Sepsis Screening: The patient does not have new or worsening altered mentation. Patient's respiratory rate is less than 22. Systolic blood pressure is greater than 100. Patient has a qSOFA score of 0- Negative Sepsis Screen. 07:28 General: Appears in no apparent distress, comfortable, Behavior is appropriate for age, ead cooperative. Pain: Location: anterior aspect of right upper chest and right breast. Neurological: Level of Consciousness is awake, alert, obeys commands, Oriented to person, place, time. Cardiovascular: Rhythm is sinus rhythm. Respiratory: Reports pain with respiration. Derm: Skin is pink, warm & dry. 07:31 General: Dr. Plummer at bedside to examine pt. Heparin drip infusing as ordered and ead verified by second nurse. . 08:30 General: Appears in no apparent distress, comfortable, Behavior is appropriate for age, ead cooperative. Neurological: Level of Consciousness is awake, alert, Oriented to person, place, time, Reports headache has improved after tylenol. Cardiovascular: Rhythm is sinus rhythm. Respiratory: Airway is patent Respiratory effort is even, unlabored. Derm: Skin is pink, warm & dry. 09:35 General: Appears in no apparent distress, comfortable, Behavior is appropriate for age, ead cooperative, pleasant, pt updated on bed status for admission. Cardiovascular: Rhythm is sinus rhythm. Respiratory: Airway is patent Respiratory effort is even, unlabored. Derm: Skin is pink, warm & dry. 10:30 General: Appears in no apparent distress, comfortable, Behavior is appropriate for age, ead cooperative. Neurological: No deficits noted. Cardiovascular: Rhythm is sinus rhythm. Respiratory: Airway is patent Respiratory effort is even, unlabored. Derm: Skin is pink, warm & dry. 11:00 General: SBAR faxed and tubed to PCU. ead 11:36 Adult Sepsis Screening: The patient does not have new or worsening altered mentation. ms2 Patient's respiratory rate is less than 22. Systolic blood pressure is greater than 100. Patient has a qSOFA score of 0- Negative Sepsis Screen. General: Appears in no apparent distress, Behavior is cooperative. Neurological: Level of Consciousness is awake, alert, obeys commands. Respiratory: No deficits noted. Airway is patent Respiratory effort is even, unlabored, Respiratory pattern is regular, symmetrical. Derm: Skin is pink, warm & dry. Musculoskeletal: Range of motion intact in all extremities. 11:38 General: pt medicated for headache--6/10 headache and 8 10 chest if deep inspiration. ms2 Neurological: Level of Consciousness is awake, alert, obeys commands. Respiratory: No deficits noted. Airway is patent Respiratory effort is even, unlabored, Respiratory pattern is regular, symmetrical. GI: Abdomen is flat, non- distended. Derm: Skin is pink, warm & dry. Musculoskeletal: Range of motion intact in all extremities. Vital Signs: 03:03 BP 125 / 79; Pulse 85; Resp 20; Temp 98.4(TE); Pulse Ox 99% on R/A; Weight 77.11 kg; sls1 Height 5 ft. 8 in. (172.72 cm); Pain 8/10; 03:39 BP 111 / 72 (auto/); cf2 03:41 Pulse 62 MON; Pulse Ox 98% ; cf2 03:41 BP 110 / 64; Resp 16; Pain 3/10; cf2 03:43 Pulse 62 MON; Pulse Ox 98% ; cf2 03:50 Pulse 60 MON; Pulse Ox 97% ; cf2 03:57 Pulse 58 MON; Pulse Ox 97% ; cf2 04:04 Pulse 56 MON; Pulse Ox 97% ; cf2 04:11 Pulse 56 MON; Pulse Ox 96% ; cf2 04:18 Pulse 56 MON; Pulse Ox 96% ; cf2 04:26 Pulse 54 MON; Pulse Ox 95% ; cf2 04:29 Pulse 54 MON; Pulse Ox 96% ; cf2 04:41 Pulse 50 MON; Pulse Ox 95% ; cf2 04:49 Pulse 54 MON; Pulse Ox 96% ; cf2 05:01 Pulse 54 MON; Pulse Ox 95% ; cf2 05:11 Pulse 48 MON; Pulse Ox 95% ; cf2 05:21 Pulse 52 MON; Pulse Ox 96% ; cf2 05:33 Pulse 48 MON; Pulse Ox 96% ; cf2 05:43 Pulse 48 MON; Pulse Ox 96% ; cf2 05:49 Pulse 52 MON; Pulse Ox 96% ; cf2 07:22 BP 132 / 71 (auto/); ead 07:29 Pulse 84 MON; Resp 16; Pulse Ox 98% on R/A; ead 07:44 BP 139 / 66 (auto/); ead 07:45 Pulse 72 MON; Pulse Ox 96% ; ead 08:24 BP 128 / 75 (auto/); ead 08:25 Pulse 78 MON; Pulse Ox 95% ; ead 08:30 Pain 3/10; ead 08:37 BP 124 / 74 (auto/); ead 08:38 Pulse 78 MON; Pulse Ox 96% ; ead 09:07 BP 133 / 63 (auto/); ead 09:08 Pulse 76 MON; Pulse Ox 94% ; ead 09:37 BP 107 / 54 (auto/); ead 09:38 Pulse 74 MON; Resp 16; Pulse Ox 97% on R/A; ead 10:52 BP 138 / 59; Pulse 74; Resp 18; Temp 98.8(TE); Pulse Ox 94% on R/A; Pain 7/10; rn1 11:40 BP 152 / 77; Pulse 79; Resp 20 S; Temp 96(T); Pulse Ox 95% on R/A; ms2 03:03 Body Mass Index 25.85 (77.11 kg, 172.72 cm) [facility] Vitals: 03:03 Log In Time: September 28, 2016 at 02:55. [facility] ED Course: 02:56 Patient visited by Kaitlyn Schulz RegJesse hs2 02:56 Patient moved to Waiting hs2 03:01 Patient moved to Triage 3 sls1 03:02 Triage Initiated sls1 03:06 Patient moved to 14 sls1 03:14 Patient visited by Quinton Orozco PCA. jmv 03:14 EKG done. (by ED staff). Reviewed by Tita Avelar DO. jmv 03:25 Val White,ARTURO is Primary Nurse. cf2 03:25 Patient visited by Val White,ARTURO. cf2 03:25 Patient visited by Val White,ARTURO. cf2 03:29 Patient visited by Val White RN. cf2 03:30 The patient / caregiver is instructed regarding the plan of care and ED course. Patient cf2 has correct armband on for positive identification. Placed in gown. Bed in low position. Call light in reach. Side rails up X 1. Side rails up X2. monitoring tech on. Pulse ox on. NIBP on. Property :Personal belongings accompany Pt. Door closed. Noise minimized. Visitors limited. Lights dimmed. Moved to private room. Verbal reassurance given. Warm blanket given. Pillow given. Head of bed elevated. Diet: Patient is NPO. 03:30 No procedures done that require assistance. cf2 03:33 Patient visited by Val White RN. cf2 03:40 Tita Avelar DO is Attending Physician. mm11 03:40 Patient visited by Tita Avelar DO. mm11 03:41 Inserted saline lock: 20 gauge in left antecubital area and blood collected. The cf2 patient tolerated the procedure well. 03:49 Patient visited by Tita Avelar DO. mm11 03:53 Patient visited by Chidi Stroud PCA. mdr 03:53 monitoring tech on. Pulse ox on. NIBP on. mdr 04:10 Patient visited by Val White RN. cf2 04:26 Patient moved to Ultrasound br3 04:41 Patient moved to 14 br3 05:02 Patient visited by Val White RN. cf2 05:12 Patient visited by Val White RN. cf2 05:22 [facility] Payment Agreement was scanned into [employer] and attached to record. pm4 05:31 Patient name changed from Abdelrahman\S\\S\Zararauskas\S\ to Abdelrahman\S\Pepe\S\Aureliakas. EDMS 05:40 DVT US Lower Returned. EDMS 05:40 CT Chest Angio R/O PE Returned. EDMS 05:56 Patient visited by Val White,ARTURO. cf2 06:23 Dionicio Plummer MD is Hospitalizing Provider. mm11 06:24 Patient visited by Val White RN. cf2 06:49 Patient visited by Val White RN. cf2 06:59 Deandra Lord,RN is Primary Nurse. ead 09:01 EKG-ADULT Returned. EDMS 09:45 Patient visited by Deandra Lord RN. ead 11:21 Patient visited by Harish Bingham,ARTURO. ms2 11:27 Patient visited by Harish Bingham,ARTURO. ms2 11:27 floor ready for pt. ms2 11:40 The patient / caregiver is instructed regarding the plan of care and ED course. ms2 11:40 IV is patent, is intact, is free of redness or swelling. solution is infusing as ms2 ordered. heparin drip on a pump. 11:46 Harish Bingham,RN is Primary Nurse. ms2 13:33 T-Sheet-- Draft Copy was scanned into [employer] and attached to record. gb 13:34 Trend VS was scanned into [employer] and attached to record. gb Administered Medications: 04:10 Drug: NS 0.9% 1000 ml [sodium chloride 0.9 % intravenous solution] Route: IV; Rate: 100 cf2 mL/hr; Site: left antecubital; 07:15 Follow up: IV Status: Completed infusion; IV Intake: 1000ml ; 1L NS found to be infused ead upon this nurse assuming care of pt. 04:10 Drug: Ondansetron 4 mg [ondansetron HCl 2 mg/mL intravenous solution (2 mL)] Route: cf2 IVP; Site: left antecubital; 06:28 Follow up: Response: Pain is decreased cf2 04:10 Drug: morphine 4 mg [morphine 4 mg/mL intravenous cartridge (1 mL)] Route: IVP; Site: cf2 left antecubital; 06:00 Drug: morphine 4 mg [morphine 4 mg/mL intravenous cartridge (1 mL)] Route: IVP; Site: cf2 left antecubital; 06:28 Follow up: Response: Pain is decreased cf2 07:26 Drug: heparin (Thrombolytic Protocol, 60 units/kg)) 4000 units [heparin (porcine) 5,000 ead unit/mL injection solution (0.8 mL)] {Co-Signature: diaz (Christen Lopez RN).} Route: IVP; Site: left antecubital; 07:50 Follow up: Response: No Adverse Reaction ead 07:28 Drug: heparin (Thrombolytic Protocol, 12 units/kg/hr)) 69130 units [heparin (porcine) ead 25,000 unit/250 mL (100 unit/mL) in dextrose 5 % IV] {Co-Signature: diaz (Christen Lopez RN).} Route: IV; Rate: 1000 units/hr; Site: left antecubital; 07:45 Drug: Acetaminophen 650 mg [acetaminophen 325 mg tablet (2 tabs)] Route: PO; ead 08:30 Follow up: Pain 11/17 Adult; Response: No Adverse Reaction; Pain is decreased ead 11:38 Drug: Acetaminophen 650 mg [acetaminophen 325 mg tablet (2 tabs)] Route: PO; ms2 Attachments: 13:34 Trend VS gb Intake: 07:15 IV: 1000.00ml; Total: 1000.00ml. ead 11:40 PO: 60.00ml; Total: 1060.00ml. ms2 11:43 PO: 460.00ml; IV: 42.50ml; Total: 1562.50ml. ms2 Output: 11:43 Urine: 800.00ml (Voided); Total: 800.00ml. ms2 Order Results: Lab Order: Basic Metabolic Profile; SPEC'M 09/28/16 03:47 Test: GLUCOSE, FASTING; Value: 96; Range: 70-105; Units: MG/DL; Status: F Test: BLOOD UREA NITROGEN; Value: 16; Range: 7-18; Units: MG/DL; Status: F Test: CREATININE FOR GFR; Value: 0.98; Range: 0.70-1.30; Units: MG/DL; Status: F Test: GLOMERULAR FILTRATION RATE; Value: > 60.0; Range: >60; Status: F Test: SODIUM LEVEL; Value: 142; Range: 136-145; Units: MEQ/L; Status: F Test: POTASSIUM SERUM; Value: 4.3; Range: 3.5-5.1; Units: MEQ/L; Status: F Test: CHLORIDE LEVEL; Value: 104; Range: 98-107; Units: MEQ/L; Status: F Test: CARBON DIOXIDE LEVEL; Value: 31; Range: 21-32; Units: MEQ/L; Status: F Test: ANION GAP; Value: 7; Range: 8-16; Abnormal: Below low normal; Units: MEQ/L; Status: F Test: CALCIUM LEVEL; Value: 8.7; Range: 8.5-10.1; Units: MG/DL; Status: F Test Note: ; Units are mL/min/1.73 m2 Chronic Kidney Disease Staging per NKF: Stage I & II GFR >=60 Normal to Mildly Decreased Stage III GFR 30-59 Moderately Decreased Stage IV GFR 15-29 Severely Decreased Stage V GFR <15 Very Little GFR Left ESRD GFR <15 on SOLICITING FREIGHT AGENT Lab Order: CBC with Diff; SPEC'M 09/28/16 03:47 Test: WHITE BLOOD COUNT; Value: 8.2; Range: 4.0-10.0; Units: K/mm3; Status: F Test: RED BLOOD COUNT; Value: 5.41; Range: 4.30-6.10; Units: M/mm3; Status: F Test: HEMOGLOBIN; Value: 16.2; Range: 14.0-18.0; Units: g/dl; Status: F Test: HEMATOCRIT; Value: 48.5; Range: 42.0-52.0; Units: %; Status: F Test: MEAN CORPUSCULAR VOLUME; Value: 89.6; Range: 80.0-96.0; Units: fl; Status: F Test: MEAN CORPUSCULAR HEMOGLOBIN; Value: 29.9; Range: 27.0-33.0; Units: pg; Status: F Test: MEAN CORPUSCULAR HGB CONC; Value: 33.4; Range: 32.0-36.5; Units: g/dl; Status: F Test: RED CELL DISTRIBUTION WIDTH; Value: 12.7; Range: 11.5-14.5; Units: %; Status: F Test: PLATELET COUNT, AUTOMATED; Value: 146; Range: 150-450; Abnormal: Below low normal; Units: k/mm3; Status: F Test: NEUTROPHILS %; Value: 63.7; Range: 36.0-66.0; Units: %; Status: F Test: LYMPH %; Value: 22.4; Range: 24.0-44.0; Abnormal: Below low normal; Units: %; Status: F Test: MONO %; Value: 6.5; Range: 0.0-5.0; Abnormal: Above high normal; Units: %; Status: F Test: EOS %; Value: 4.6; Range: 0.0-3.0; Abnormal: Above high normal; Units: %; Status: F Test: BASO %; Value: 1.0; Range: 0.0-1.0; Units: %; Status: F Test: LARGE UNSTAINED CELL %; Value: 1.8; Range: 0.0-4.0; Units: %; Status: F Test: NEUTROPHILS #; Value: 5.2; Range: 1.8-7.7; Units: K/mm3; Status: F Test: LYMPH #; Value: 2.0; Range: 1.5-4.5; Units: K/mm3; Status: F Test: MONO #; Value: 0.5; Range: 0.0-0.8; Units: K/mm3; Status: F Test: EOS #; Value: 0.4; Range: 0.0-0.50; Units: K/mm3; Status: F Test: BASO #; Value: 0.1; Range: 0.0-0.2; Units: K/mm3; Status: F Test: LARGE UNSTAINED CELL #; Value: 0.2; Range: 0.0-0.4; Units: K/mm3; Status: F Lab Order: Cardiac Injury Profile; SPEC'M 09/28/16 03:47 Test: CPK CREATINE PHOSPHOKINASE; Value: 61; Range: 39-308; Units: U/L; Status: F Test: CK-MB VALUE MASS; Value: 1.0; Range: 0.0-3.6; Units: NG/ML; Status: F Test: MB/CK RELATIVE INDEX; Value: 1.63; Range: < OR =4; Status: F Test Note: ; DIAGNOSIS CRITERIA MMB ng/ml Relative Index (RI) NON-AMI < or = 5 N/A CONTRERAS ZONE > 5 < or = 4 AMI > 5 > 4 Lab Order: Troponin; [facility] 09/28/16 03:47 Test: TROPONIN I; Value: < 0.02; Range: < 0.10; Units: NG/ML; Status: F Test Note: ; Troponin I Reference Interval for Siemens SQMOS LOCI: 99th Percentile= 0.00-0.045 ng/ml Risk Stratification: <= 0.10 ng/ml Decreased Risk for Adverse Clinical Events. 0.10-1.50 ng/ml Increased Risk for Adverse Clinical Events. Evaluation of additional criterion and/or repeat testing in 2-6 hours is suggested to rule out myocardial damage. >= 1.50 ng/ml Indicative of Myocardial Injury. Lab Order: Pt & Aptt; [facility] 09/28/16 03:47 Test: PROTHROMBIN TIME; Value: 13.8; Range: 12.3-14.5; Units: SECONDS; Status: F Test: INR; Value: 1.05; Status: F Test: PARTIAL THROMBOPLASTIN TIME; Value: 26.8; Range: 26.6-37.1; Units: SECONDS; Status: F Test Note: ; THERAPUTIC HUMAN INR VALUES INDICATIONS NORMAL RANGES PROPHYLAXIS/TREATMENT OF: VENOUS THROMBOSIS 2.0-3.0 PULMONARY EMBOLISM 2.0-3.0 PREVENTION OF SYSTEMIC EMBOLISM FROM: TISSUE HEART VALVES 2.0-3.0 ACUTE MYOCARDIAL INFARCTION 2.0-3.0 VALVULAR HEART DISEASE 2.0-3.0 ATRIAL FIBRILLATION 2.0-3.0 MECHANICAL VALVES(HIGH RISK) 2.5-3.5 RECURRENT MYOCARDIAL INFARCTION 2.5-3.5 Lab Order: ERYTHROCYTE SEDIMENTATION RATE; [facility] 09/28/16 08:15 Test: ERYTHROCYTE SEDIMENTATION RATE; Value: 8; Range: 0-15; Units: mm/hr; Status: F Lab Order: C REACTIVE PROTEIN QUANTITATIV; [facility] 09/28/16 08:14 Test: C REACTIVE PROTEIN QUANTITATIV; Value: 1.10; Range: 0.00-0.30; Abnormal: Above high normal; Units: MG/DL; Status: F Lab Order: PARTIAL THROMBOPLASTIN TIME; [facility] 09/28/16 08:13 Test: PARTIAL THROMBOPLASTIN TIME; Value: 91.2; Range: 26.6-37.1; Abnormal: Above high normal; Units: SECONDS; Status: F Radiology Order: EKG-ADULT Test: EKG-ADULT REASON FOR EXAMINATION: chest pain;Chest Pain; Stationary ECG Study; [facility] - ED; ; Test Date: 2016-09-28; Pat Name: ABDELRAHMAN GONZALEZ Department:; Room: -; Gender: M 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; : 1985 Requested By: TITA Tineo; Order Number: [id number] Reading MD: Carlos A Sandoval; Measurements; Intervals [place]; Rate: 71 P: 32; HI: 175 QRS: 43; QRSD: 102 T: 8; QT: 370; QTc: 405; Interpretive Statements; SINUS RHYTHM; NONSPECIFIC ST T-WAVE ABNORMALITY; NO PRIORS; Electronically Signed On 09-28-2016 8:59:33 EST by Carlos A Sandoval; Radiology Order: DVT US Lower Test: DVT US Lower REASON FOR EXAMINATION: Deformity/Swelling; ; CLINICAL HISTORY: Edema.; COMMENTS:; Real time sonography with duplex doppler of the left lower extremity was performed with attention to; the major deep venous structures.; Evaluation reveals the left common femoral, superficial femoral and popliteal veins to be completely; compressible without intraluminal thrombus. There is normal spontaneous phasic flow and augmentation.; The greater saphenous/common femoral vein junction is patent.; IMPRESSION:; No evidence of DVT in left lower extremity..; Thank you for your kind referral of this patient.; ; Radiology Order: CT Chest Angio R/O PE Test: CT Chest Angio R/O PE REASON FOR EXAMINATION: Chest Pain; ; CLINICAL HISTORY: Dyspnea, exclude PE.; TECHNIQUE: Multiple incremental axial, coronal and oblique images are obtained from the thoracic inle; t to the upper abdomen. Intravenous contrast material was administered as per pulmonary embolism prot; ocol.; COMMENTS:; Segmental branches pulmonary emboli in the right lower lobe.; Associated small right pleural effusion.; Associated subpleural consolidation in the right lower lobe.; There is excellent opacification of the remaining pulmonary arterial system without evidence for anot; her pulmonary embolism. Aorta is of normal caliber without evidence for dissection or aneurysm.; There is no evidence of pleural or parenchymal mass. There are no pleural effusions. There is no evid; ence of hilar or mediastinal lymphadenopathy. The heart and great vessels are within normal limits.; Images of the upper abdomen demonstrate no evidence of adrenal mass.; The bony structures are free of lytic or blastic lesions.; IMPRESSION:; Segmental branches pulmonary emboli in the right lower lobe.; Associated small right pleural effusion.; Associated subpleural consolidation in the right lower lobe. Findings are suggestive of developing in; farction.; Thank you for your kind referral of this patient.; ; Outcome: 06:23 Decision to Hospitalize by Provider. mm11 11:41 Discharge Assessment: patient administered narcotics - yes. Patient was admitted to the [address] or transferred to another facility. The following High Risk Discharge criteria are identified: None. Admitted to Med/Surg accompanied by tech, family with patient, via stretcher, with chart. Condition: stable. CT Study completed. 12:16 [place] left the [place]. [facility] [place] Signatures: Dispatcher [employer] EDMS Harish Bingham RN RN ms2 Antionette Mcclain, Reg Reg gb Tita Avelar, DO DO mm11 Adele Lopez br3 Daisy Pizano RN RN sls1 Deandra Lord,Antonio Limon RN rn1 Chidi Stroud, BIOLOGY MANAGER BIOLOGY MANAGER Kaitlyn Gandhi, Reg Reg hs2 Val White,RN RN cf2 Quinton Orozco, BIOLOGY MANAGER BIOLOGY MANAGER Amor Ross, Reg Reg pm4 Christen Lopez RN jjr Chart Complete MTDD
--- NOTE | 2016-09-30 13:16 | EDDOCDS ---
Physician Documentation [facility] Name: Abdelrahman Gonzalez Age: 31 yrs Sex: Male : 1985 Arrival Date: 09/28/2016 Time: 02:55 Bed 14 Private MD: Disposition: 09/28/16 06:23 Hospitalization ordered by Dionicio Plummer for Inpatient Admission. Preliminary diagnosis is Pulmonary embolism - right, with infarction. - Bed requested for 4 [place]. - Status is Inpatient Admission. ms2 - Condition is Stable. - Problem is an acute exacerbation. - Symptoms have improved. Historical: - Allergies: small pox vacine; - Home Meds: 1. none - PMHx: none; - PSHx: cauliflower ear repair twice; - Social history: Smoking status: Patient states was never smoker of tobacco. No barriers to communication noted, The patient speaks fluent Latvian, Speaks appropriately for age. - Family history: Not pertinent. - : The pt / caregiver states he / she is not on anticoagulants. Home medication list is obtained from the patient. - Exposure Risk Screening:: None identified. Vital Signs: 09/28 03:03 BP 125 / 79; Pulse 85; Resp 20; Temp 98.4(TE); Pulse Ox 99% on R/A; Weight 77.11 kg / sls1 170 lbs; Height 5 ft. 8 in. (172.72 cm); Pain 8/10; 03:39 BP 111 / 72 (auto/); cf2 03:41 Pulse 62 MON; Pulse Ox 98% ; cf2 03:41 BP 110 / 64; Resp 16; Pain 3/10; cf2 03:43 Pulse 62 MON; Pulse Ox 98% ; cf2 03:50 Pulse 60 MON; Pulse Ox 97% ; cf2 03:57 Pulse 58 MON; Pulse Ox 97% ; cf2 04:04 Pulse 56 MON; Pulse Ox 97% ; cf2 04:11 Pulse 56 MON; Pulse Ox 96% ; cf2 04:18 Pulse 56 MON; Pulse Ox 96% ; cf2 04:26 Pulse 54 MON; Pulse Ox 95% ; cf2 04:29 Pulse 54 MON; Pulse Ox 96% ; cf2 04:41 Pulse 50 MON; Pulse Ox 95% ; cf2 04:49 Pulse 54 MON; Pulse Ox 96% ; cf2 05:01 Pulse 54 MON; Pulse Ox 95% ; cf2 05:11 Pulse 48 MON; Pulse Ox 95% ; cf2 05:21 Pulse 52 MON; Pulse Ox 96% ; cf2 05:33 Pulse 48 MON; Pulse Ox 96% ; cf2 05:43 Pulse 48 MON; Pulse Ox 96% ; cf2 05:49 Pulse 52 MON; Pulse Ox 96% ; cf2 07:22 BP 132 / 71 (auto/); ead 07:29 Pulse 84 MON; Resp 16; Pulse Ox 98% on R/A; ead 07:44 BP 139 / 66 (auto/); ead 07:45 Pulse 72 MON; Pulse Ox 96% ; ead 08:24 BP 128 / 75 (auto/); ead 08:25 Pulse 78 MON; Pulse Ox 95% ; ead 08:30 Pain 3/10; ead 08:37 BP 124 / 74 (auto/); ead 08:38 Pulse 78 MON; Pulse Ox 96% ; ead 09:07 BP 133 / 63 (auto/); ead 09:08 Pulse 76 MON; Pulse Ox 94% ; ead 09:37 BP 107 / 54 (auto/); ead 09:38 Pulse 74 MON; Resp 16; Pulse Ox 97% on R/A; ead 10:52 BP 138 / 59; Pulse 74; Resp 18; Temp 98.8(TE); Pulse Ox 94% on R/A; Pain 7/10; rn1 11:40 BP 152 / 77; Pulse 79; Resp 20 S; Temp 96(T); Pulse Ox 95% on R/A; ms2 03:03 Body Mass Index 25.85 (77.11 kg, 172.72 cm) sls1 MDM: 03:03 ECG WITH READING ER PHYS+CARDIAG ordered. EDMS 03:50 NS 0.9% 1000 ml IV at 100 mL/hr continuous ordered. mm11 03:50 Ondansetron 4 mg IVP once ordered. mm11 03:50 Glass Worker/Pulse Ox/q 30 min VS ordered. mm11 03:50 IV Saline Lock ordered. mm11 03:50 Rhythm Strip to chart ordered. mm11 03:50 Undress patient appropriately for examination ordered. mm11 03:50 morphine 4 mg IVP every 30 minutes; Document pain score/vitals after each dose (Hold if mm11 SBP < 90mmHg) x2 ordered. 03:51 Basic Metabolic Profile Ordered. EDMS 03:51 CBC with Diff Ordered. EDMS 03:51 Cardiac Injury Profile Ordered. EDMS 03:51 Troponin Ordered. EDMS 03:52 DVT US Lower Ordered. EDMS 04:22 Basic Metabolic Profile Reviewed. mm11 04:22 CBC with Diff Reviewed. mm11 04:22 Troponin Reviewed. mm11 04:24 CT Chest Angio R/O PE Ordered. EDMS 04:44 Basic Metabolic Profile Reviewed. mm11 04:44 Cardiac Injury Profile Reviewed. mm11 04:44 Troponin Reviewed. mm11 05:22 Financial registration complete. pm4 05:22 [facility] Payment Agreement was scanned into [employer] and attached to record. pm4 06:21 heparin (Thrombolytic Protocol, 12 units/kg/hr)) 02000 units IV at 1000 units/hr once; mm11 Max. dose 1000units/hr. No Lovenox past 18hrs/ draw labs. ordered. 06:21 heparin (Thrombolytic Protocol, 60 units/kg)) 4000 units IVP once; max 4000 units. mm11 Ensure no Lovenox in past 18hr, labs drawn ordered. 06:22 BED REQUEST+ADM ordered. EDMS 06:22 Pt & Aptt Ordered. EDMS 06:35 DVT US Lower Reviewed. mm11 06:35 CT Chest Angio R/O PE Reviewed. mm11 07:07 Pt & Aptt Reviewed. mm11 07:08 Acetaminophen Tablet 650 mg PO once ordered. mm11 07:47 ANTINUCLEAR ANTIBODIES Ordered. EDMS 07:48 ANTI-CARDIOLIPIN ANTIBODIES Ordered. EDMS 07:48 ANTI-NEUTROPHIL CYTOPLASMIC AB Ordered. EDMS 07:48 ANTI-SJOGRENS A & B ANTIBODIES Ordered. EDMS 07:48 ERYTHROCYTE SEDIMENTATION RATE Ordered. EDMS 07:48 C REACTIVE PROTEIN QUANTITATIV Ordered. EDMS 07:48 PROTEIN C ANTIGEN Ordered. EDMS 07:48 PROTEIN S ANTIGEN(TOT&FREE) Ordered. EDMS 07:48 ANTI THROMBIN 3 PANEL (AG/AC) Ordered. EDMS 07:48 HOMOCYSTEINE Ordered. EDMS 07:48 FACTOR V LEIDEN Ordered. EDMS 07:48 FACTOR II PROTHROMBIN GENE AN Ordered. EDMS 07:48 PARTIAL THROMBOPLASTIN TIME Ordered. EDMS 07:49 PARTIAL THROMBOPLASTIN TIME Ordered. EDMS 07:49 PARTIAL THROMBOPLASTIN TIME Ordered. EDMS 07:50 Admission / Observation Status ordered. EDMS 07:56 REGULAR DIET ordered. EDMS 08:29 Lupus Type Anticoagulant Ordered. EDMS 11:38 Acetaminophen Tablet 650 mg PO once ordered. ms2 13:33 T-Sheet-- Draft Copy was scanned into [employer] and attached to record. gb 13:34 Trend VS was scanned into [employer] and attached to record. gb Administered Medications: 04:10 Drug: NS 0.9% 1000 ml [sodium chloride 0.9 % intravenous solution] Route: IV; Rate: 100 cf2 mL/hr; Site: left antecubital; 07:15 Follow up: IV Status: Completed infusion; IV Intake: 1000ml ; 1L NS found to be infused ead upon this nurse assuming care of pt. 04:10 Drug: Ondansetron 4 mg [ondansetron HCl 2 mg/mL intravenous solution (2 mL)] Route: cf2 IVP; Site: left antecubital; 06:28 Follow up: Response: Pain is decreased cf2 04:10 Drug: morphine 4 mg [morphine 4 mg/mL intravenous cartridge (1 mL)] Route: IVP; Site: cf2 left antecubital; 06:00 Drug: morphine 4 mg [morphine 4 mg/mL intravenous cartridge (1 mL)] Route: IVP; Site: cf2 left antecubital; 06:28 Follow up: Response: Pain is decreased cf2 07:26 Drug: heparin (Thrombolytic Protocol, 60 units/kg)) 4000 units [heparin (porcine) 5,000 ead unit/mL injection solution (0.8 mL)] {Co-Signature: diaz (Christen Lopez RN).} Route: IVP; Site: left antecubital; 07:50 Follow up: Response: No Adverse Reaction ead 07:28 Drug: heparin (Thrombolytic Protocol, 12 units/kg/hr)) 72445 units [heparin (porcine) ead 25,000 unit/250 mL (100 unit/mL) in dextrose 5 % IV] {Co-Signature: diaz (Christen Lopez RN).} Route: IV; Rate: 1000 units/hr; Site: left antecubital; 07:45 Drug: Acetaminophen 650 mg [acetaminophen 325 mg tablet (2 tabs)] Route: PO; ead 08:30 Follow up: Pain 3/10 Adult; Response: No Adverse Reaction; Pain is decreased ead 11:38 Drug: Acetaminophen 650 mg [acetaminophen 325 mg tablet (2 tabs)] Route: PO; ms2 Signatures: Dispatcher [employer] EDErma Brown, RN RN kcs Harish Bingham RN RN ms2 Antionette Mcclain, Reg Reg gb AvelarLuis weston, DO DO mm11 Daisy Pizano RN RN sls1 Harish Callahan RN RN mts Val White RN RN cf2 Amor Gregorio, Reg Reg pm4 Deandra Lord RN ead Christen Lopez RN jandrer The chart was reviewed and I authenticate all verbal orders and agree with the evaluation and treatment provided.Corrections: (The following items were deleted from the chart) 07:56 07:47 2 GRAM SODIUM DIET ordered. EDMS EDMS 08:29 07:47 Lupus Type Anticoagulant ordered. EDMS EDMS Attachments: 05:22 [facility] Payment Agreement pm4 13:33 T-Sheet-- Draft Copy Chart Complete MTDD
--- NOTE | 2016-09-30 13:16 | EDDOCDS ---
Physician Documentation [facility] Name: Abdelrahman Gonzalez Age: 31 yrs Sex: Male : 1985 Arrival Date: 09/28/2016 Time: 02:55 Bed 14 Private MD: Disposition: 09/28/16 06:23 Hospitalization ordered by Dionicio Plummer for Inpatient Admission. Preliminary diagnosis is Pulmonary embolism - right, with infarction. - Bed requested for 4 [place]. - Status is Inpatient Admission. ms2 - Condition is Stable. - Problem is an acute exacerbation. - Symptoms have improved. Historical: - Allergies: small pox vacine; - Home Meds: 1. none - PMHx: none; - PSHx: cauliflower ear repair twice; - Social history: Smoking status: Patient states was never smoker of tobacco. No barriers to communication noted, The patient speaks fluent Occitan, Speaks appropriately for age. - Family history: Not pertinent. - : The pt / caregiver states he / she is not on anticoagulants. Home medication list is obtained from the patient. - Exposure Risk Screening:: None identified. Vital Signs: 09/28 03:03 BP 125 / 79; Pulse 85; Resp 20; Temp 98.4(TE); Pulse Ox 99% on R/A; Weight 77.11 kg / sls1 170 lbs; Height 5 ft. 8 in. (172.72 cm); Pain 8/10; 03:39 BP 111 / 72 (auto/); cf2 03:41 Pulse 62 MON; Pulse Ox 98% ; cf2 03:41 BP 110 / 64; Resp 16; Pain 3/10; cf2 03:43 Pulse 62 MON; Pulse Ox 98% ; cf2 03:50 Pulse 60 MON; Pulse Ox 97% ; cf2 03:57 Pulse 58 MON; Pulse Ox 97% ; cf2 04:04 Pulse 56 MON; Pulse Ox 97% ; cf2 04:11 Pulse 56 MON; Pulse Ox 96% ; cf2 04:18 Pulse 56 MON; Pulse Ox 96% ; cf2 04:26 Pulse 54 MON; Pulse Ox 95% ; cf2 04:29 Pulse 54 MON; Pulse Ox 96% ; cf2 04:41 Pulse 50 MON; Pulse Ox 95% ; cf2 04:49 Pulse 54 MON; Pulse Ox 96% ; cf2 05:01 Pulse 54 MON; Pulse Ox 95% ; cf2 05:11 Pulse 48 MON; Pulse Ox 95% ; cf2 05:21 Pulse 52 MON; Pulse Ox 96% ; cf2 05:33 Pulse 48 MON; Pulse Ox 96% ; cf2 05:43 Pulse 48 MON; Pulse Ox 96% ; cf2 05:49 Pulse 52 MON; Pulse Ox 96% ; cf2 07:22 BP 132 / 71 (auto/); ead 07:29 Pulse 84 MON; Resp 16; Pulse Ox 98% on R/A; ead 07:44 BP 139 / 66 (auto/); ead 07:45 Pulse 72 MON; Pulse Ox 96% ; ead 08:24 BP 128 / 75 (auto/); ead 08:25 Pulse 78 MON; Pulse Ox 95% ; ead 08:30 Pain 3/10; ead 08:37 BP 124 / 74 (auto/); ead 08:38 Pulse 78 MON; Pulse Ox 96% ; ead 09:07 BP 133 / 63 (auto/); ead 09:08 Pulse 76 MON; Pulse Ox 94% ; ead 09:37 BP 107 / 54 (auto/); ead 09:38 Pulse 74 MON; Resp 16; Pulse Ox 97% on R/A; ead 10:52 BP 138 / 59; Pulse 74; Resp 18; Temp 98.8(TE); Pulse Ox 94% on R/A; Pain 7/10; rn1 11:40 BP 152 / 77; Pulse 79; Resp 20 S; Temp 96(T); Pulse Ox 95% on R/A; ms2 03:03 Body Mass Index 25.85 (77.11 kg, 172.72 cm) sls1 MDM: 03:03 ECG WITH READING ER PHYS+CARDIAG ordered. EDMS 03:50 NS 0.9% 1000 ml IV at 100 mL/hr continuous ordered. mm11 03:50 Ondansetron 4 mg IVP once ordered. mm11 03:50 Integration Consultant/Pulse Ox/q 30 min VS ordered. mm11 03:50 IV Saline Lock ordered. mm11 03:50 Rhythm Strip to chart ordered. mm11 03:50 Undress patient appropriately for examination ordered. mm11 03:50 morphine 4 mg IVP every 30 minutes; Document pain score/vitals after each dose (Hold if mm11 SBP < 90mmHg) x2 ordered. 03:51 Basic Metabolic Profile Ordered. EDMS 03:51 CBC with Diff Ordered. EDMS 03:51 Cardiac Injury Profile Ordered. EDMS 03:51 Troponin Ordered. EDMS 03:52 DVT US Lower Ordered. EDMS 04:22 Basic Metabolic Profile Reviewed. mm11 04:22 CBC with Diff Reviewed. mm11 04:22 Troponin Reviewed. mm11 04:24 CT Chest Angio R/O PE Ordered. EDMS 04:44 Basic Metabolic Profile Reviewed. mm11 04:44 Cardiac Injury Profile Reviewed. mm11 04:44 Troponin Reviewed. mm11 05:22 Financial registration complete. pm4 05:22 [facility] Payment Agreement was scanned into [employer] and attached to record. pm4 06:21 heparin (Thrombolytic Protocol, 12 units/kg/hr)) 54953 units IV at 1000 units/hr once; mm11 Max. dose 1000units/hr. No Lovenox past 18hrs/ draw labs. ordered. 06:21 heparin (Thrombolytic Protocol, 60 units/kg)) 4000 units IVP once; max 4000 units. mm11 Ensure no Lovenox in past 18hr, labs drawn ordered. 06:22 BED REQUEST+ADM ordered. EDMS 06:22 Pt & Aptt Ordered. EDMS 06:35 DVT US Lower Reviewed. mm11 06:35 CT Chest Angio R/O PE Reviewed. mm11 07:07 Pt & Aptt Reviewed. mm11 07:08 Acetaminophen Tablet 650 mg PO once ordered. mm11 07:47 ANTINUCLEAR ANTIBODIES Ordered. EDMS 07:48 ANTI-CARDIOLIPIN ANTIBODIES Ordered. EDMS 07:48 ANTI-NEUTROPHIL CYTOPLASMIC AB Ordered. EDMS 07:48 ANTI-SJOGRENS A & B ANTIBODIES Ordered. EDMS 07:48 ERYTHROCYTE SEDIMENTATION RATE Ordered. EDMS 07:48 C REACTIVE PROTEIN QUANTITATIV Ordered. EDMS 07:48 PROTEIN C ANTIGEN Ordered. EDMS 07:48 PROTEIN S ANTIGEN(TOT&FREE) Ordered. EDMS 07:48 ANTI THROMBIN 3 PANEL (AG/AC) Ordered. EDMS 07:48 HOMOCYSTEINE Ordered. EDMS 07:48 FACTOR V LEIDEN Ordered. EDMS 07:48 FACTOR II PROTHROMBIN GENE AN Ordered. EDMS 07:48 PARTIAL THROMBOPLASTIN TIME Ordered. EDMS 07:49 PARTIAL THROMBOPLASTIN TIME Ordered. EDMS 07:49 PARTIAL THROMBOPLASTIN TIME Ordered. EDMS 07:50 Admission / Observation Status ordered. EDMS 07:56 REGULAR DIET ordered. EDMS 08:29 Lupus Type Anticoagulant Ordered. EDMS 11:38 Acetaminophen Tablet 650 mg PO once ordered. ms2 13:33 T-Sheet-- Draft Copy was scanned into [employer] and attached to record. gb 13:34 Trend VS was scanned into [employer] and attached to record. gb Administered Medications: 04:10 Drug: NS 0.9% 1000 ml [sodium chloride 0.9 % intravenous solution] Route: IV; Rate: 100 cf2 mL/hr; Site: left antecubital; 07:15 Follow up: IV Status: Completed infusion; IV Intake: 1000ml ; 1L NS found to be infused ead upon this nurse assuming care of pt. 04:10 Drug: Ondansetron 4 mg [ondansetron HCl 2 mg/mL intravenous solution (2 mL)] Route: cf2 IVP; Site: left antecubital; 06:28 Follow up: Response: Pain is decreased cf2 04:10 Drug: morphine 4 mg [morphine 4 mg/mL intravenous cartridge (1 mL)] Route: IVP; Site: cf2 left antecubital; 06:00 Drug: morphine 4 mg [morphine 4 mg/mL intravenous cartridge (1 mL)] Route: IVP; Site: cf2 left antecubital; 06:28 Follow up: Response: Pain is decreased cf2 07:26 Drug: heparin (Thrombolytic Protocol, 60 units/kg)) 4000 units [heparin (porcine) 5,000 ead unit/mL injection solution (0.8 mL)] {Co-Signature: diaz (Christen Lopez RN).} Route: IVP; Site: left antecubital; 07:50 Follow up: Response: No Adverse Reaction ead 07:28 Drug: heparin (Thrombolytic Protocol, 12 units/kg/hr)) 29949 units [heparin (porcine) ead 25,000 unit/250 mL (100 unit/mL) in dextrose 5 % IV] {Co-Signature: diaz (Christen Lopez RN).} Route: IV; Rate: 1000 units/hr; Site: left antecubital; 07:45 Drug: Acetaminophen 650 mg [acetaminophen 325 mg tablet (2 tabs)] Route: PO; ead 08:30 Follow up: Pain 3/10 Adult; Response: No Adverse Reaction; Pain is decreased ead 11:38 Drug: Acetaminophen 650 mg [acetaminophen 325 mg tablet (2 tabs)] Route: PO; ms2 Signatures: Dispatcher [employer] EDErma Brown, RN RN kcs Harish Bingham RN RN ms2 Antionette Mcclain, Reg Reg gb AvelarLuis weston, DO DO mm11 Daisy Pizano RN RN sls1 Harish Callahan RN RN mts Val White RN RN cf2 Amor Gregorio, Reg Reg pm4 Deandra Lord RN ead Christen Lopez RN jandrer The chart was reviewed and I authenticate all verbal orders and agree with the evaluation and treatment provided.Corrections: (The following items were deleted from the chart) 07:56 07:47 2 GRAM SODIUM DIET ordered. EDMS EDMS 08:29 07:47 Lupus Type Anticoagulant ordered. EDMS EDMS Attachments: 05:22 [facility] [place] Payment Agreement pm4 13:33 T-Sheet-- Draft Copy Chart Complete MTDD
[2016-09-30] MEDS: KETOROLAC 30 MG/ML VIAL (J1885) IV PRN ×2 (13:32→22:58)
[2016-09-30 14:00] VITALS: BP 111/57
[2016-09-30] MEDS: WARFARIN SOD 5 MG TAB PO SCH (16:17)
[2016-09-30] MEDS ORDERED: MAGNESIUM CITRATE 300 ML BTL PO ONE (17:00)
[2016-09-30 22:00] VITALS: BP 132/59
[2016-09-30] MEDS ORDERED: MAGNESIUM CITRATE 300 ML BTL PO PRN (22:00)
[2016-10-01] MEDS: PERCOCET 5MG/325MG TAB PO PRN ×3 (04:29→21:02)
[2016-10-01 06:00] VITALS: BP 132/59
[2016-10-01 06:34] LABS: INR 1.31
[2016-10-01 06:36] LABS: MEAN CORPUSCULAR HEMOGLOBIN 31.4 pg (27.0-33.0); MEAN CORPUSCULAR HGB CONC 33.4 g/dl (32.0-36.5); MEAN CORPUSCULAR VOLUME 93.9 fl (80.0-96.0); RED CELL DISTRIBUTION WIDTH 12.6 % (11.5-14.5); WHITE BLOOD COUNT 8.3 K/mm3 (4.0-10.0)
[2016-10-01 06:42] LABS: ANION GAP 6 MEQ/L (8-16); BLOOD UREA NITROGEN 12 MG/DL (7-18); CALCIUM LEVEL 8.8 MG/DL (8.5-10.1); CARBON DIOXIDE LEVEL 31 MEQ/L (21-32); CHLORIDE LEVEL 105 MEQ/L (98-107); CREATININE FOR GFR 0.95 MG/DL (0.70-1.30); GLOMERULAR FILTRATION RATE > 60.0 (>60); GLUCOSE, FASTING 94 MG/DL (70-105); POTASSIUM SERUM 4.2 MEQ/L (3.5-5.1); SODIUM LEVEL 142 MEQ/L (136-145)
[2016-10-01] MEDS: DOCUSATE SODIUM 100 MG CAP PO SCH ×2 (07:58→21:00)
[2016-10-01] MEDS: SENOKOT S TAB PO SCH ×2 (07:58→21:00)
[2016-10-01] MEDS: HEPARIN DRIP 25,000 UNITS in APPROPRIATE DILUENT 1 EA IV SCH ×2 (09:14→23:16)
[2016-10-01] MEDS ORDERED: ONDANSETRON 4 MG ORAL DISINTEGRATING TAB (S0181) PO PRN (10:00)
[2016-10-01] MEDS: KETOROLAC 30 MG/ML VIAL (J1885) IV PRN (13:07)
--- NOTE | 2016-10-01 15:20 | IPNPDOC ---
Assessment/Plan Date Seen The patient was seen on 10/01/16. 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 Events since last encounter had multiple BMs after bowel regimen; still has pleuritic pain; a bit lightheaded today Pulmonary: Reports: Pleuritic Chest Pain Cardiovascular: Denies: Palpitations Gastrointestinal: Reports: Nausea, Denies: Vomiting Objective Physical Examination General Exam: Positive: Alert, Cooperative, No Acute Distress Eye Exam: Positive: EOMI, Negative: Sclera icteric ENT Exam: Positive: Atraumatic, Pharynx Normal Neck Exam: Positive: Supple Chest Exam: Positive: Clear to auscultation, Normal air movement Heart Exam: Positive: Rate Normal, Regular Rhythm Abdomen Exam: Positive: Soft, Negative: Tenderness Extremity Exam: Positive: Normal pulses, Negative: Edema Neuro Exam: Positive: Normal Speech Psych Exam: Positive: Mental status NL, Mood NL, Oriented x 3 Vital Signs/I&O Vital Signs Date Time Temp Pulse Resp B/P Pulse Ox O2 Delivery O2 Flow Rate FiO2 10/01/16 10:00 18 Room Air 10/01/16 06:00 97.1 74 132/59 95 I&O- Last 24 Hours up to 6 AM 10/01/16 06:00 Intake Total 1764 ml Output Total 1200 ml Balance 564 ml Laboratory Data Labs 24H Laboratory Tests 2 10/01/16 06:09: Activated Partial Thromboplast Time 97.4H, Anion Gap 6L, Blood Urea Nitrogen 12 , Creatinine 0.95, Sodium Level 142, Potassium Level 4.2, Chloride Level 105, Carbon Dioxide Level 31, Calcium Level 8.8, Glomerular Filtration Rate > 60.0, Prothromb Time International Ratio 1.31, Prothrombin Time 16.4H CBC/BMP Laboratory Tests 10/01/16 06:09 Calcium Level 8.8, Red Blood Count 4.59, Mean Corpuscular Volume 93.9, Mean Corpuscular Hemoglobin 31.4, Mean Corpuscular Hemoglobin Concent 33.4, Red Cell Distribution Width 12.6 Microbiology Microbiology 10/01/16 Stool Occult Blood (MILI) - Final, Complete 09/30/16 Stool Occult Blood (MILI) - Final, Complete 09/28/16 Stool Occult Blood (MILI) - Final, Complete FITO ZAMORA Oct 01, 2016 15:19
[2016-10-01] MEDS: WARFARIN SOD 5 MG TAB PO SCH (16:22)
[2016-10-01 22:00] VITALS: BP 138/80
[2016-10-02 06:00] VITALS: BP 151/89
[2016-10-02 06:13] LABS: INR 1.6
[2016-10-02 06:14] LABS: MEAN CORPUSCULAR HEMOGLOBIN 31.4 pg (27.0-33.0); MEAN CORPUSCULAR HGB CONC 35.1 g/dl (32.0-36.5); MEAN CORPUSCULAR VOLUME 89.6 fl (80.0-96.0); RED CELL DISTRIBUTION WIDTH 11.6 % (11.5-14.5)
[2016-10-02 06:37] LABS: ANION GAP 6 MEQ/L (8-16); BLOOD UREA NITROGEN 9 MG/DL (7-18); CALCIUM LEVEL 8.7 MG/DL (8.5-10.1); CARBON DIOXIDE LEVEL 30 MEQ/L (21-32); CHLORIDE LEVEL 105 MEQ/L (98-107); CREATININE FOR GFR 0.95 MG/DL (0.70-1.30); GLOMERULAR FILTRATION RATE > 60.0 (>60); GLUCOSE, FASTING 90 MG/DL (70-105); POTASSIUM SERUM 4.1 MEQ/L (3.5-5.1); SODIUM LEVEL 141 MEQ/L (136-145)
[2016-10-02] MEDS: HEPARIN DRIP 25,000 UNITS in APPROPRIATE DILUENT 1 EA IV SCH (08:59)
[2016-10-02] MEDS: DOCUSATE SODIUM 100 MG CAP PO SCH ×2 (09:00→20:08)
[2016-10-02] MEDS: SENOKOT S TAB PO SCH ×2 (09:00→20:09)
[2016-10-02 10:08] LABS: PROTEIN C ANTIGEN 88 % (60-150); PROTEIN S ANTIGEN FREE 95 % (57-157); PROTEIN S ANTIGEN TOTAL 115 % (60-150)
--- NOTE | 2016-10-02 13:04 | IPNPDOC ---
Assessment/Plan Date Seen The patient was seen on 10/02/16. 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 Events since last encounter no longer lightheaded; states pain has much improved Pulmonary: Reports: Cough Gastrointestinal: Denies: Vomiting Objective Physical Examination General Exam: Positive: Alert, Cooperative, No Acute Distress Eye Exam: Positive: EOMI ENT Exam: Positive: Atraumatic, Mucous membr. moist/pink Neck Exam: Positive: Supple Chest Exam: Positive: Clear to auscultation, Normal air movement Heart Exam: Positive: Rate Normal, Regular Rhythm, Negative: Murmurs Abdomen Exam: Positive: Soft Extremity Exam: Positive: Normal pulses Neuro Exam: Positive: Normal Speech Psych Exam: Positive: Mental status NL, Mood NL, Oriented x 3 Vital Signs/I&O Vital Signs Date Time Temp Pulse Resp B/P Pulse Ox O2 Delivery O2 Flow Rate FiO2 10/02/16 09:00 Room Air 10/02/16 06:00 97.9 67 17 151/89 94 I&O- Last 24 Hours up to 6 AM 10/02/16 06:00 Intake Total 1758 ml Output Total 0 ml Balance 1758 ml Laboratory Data Labs 24H Laboratory Tests 2 10/02/16 05:46: Activated Partial Thromboplast Time 157.8*H, Anion Gap 6L, Blood Urea Nitrogen 9 , Creatinine 0.95, Sodium Level 141, Potassium Level 4.1, Chloride Level 105, Carbon Dioxide Level 30, Calcium Level 8.7, Glomerular Filtration Rate > 60.0, Prothromb Time International Ratio 1.60, Prothrombin Time 19.1H CBC/BMP Laboratory Tests 10/02/16 05:46 Calcium Level 8.7, Red Blood Count 4.44, Mean Corpuscular Volume 89.6, Mean Corpuscular Hemoglobin 31.4, Mean Corpuscular Hemoglobin Concent 35.1, Red Cell Distribution Width 11.6 Microbiology Microbiology 10/01/16 Stool Occult Blood (MILI) - Final, Complete 09/30/16 Stool Occult Blood (MILI) - Final, Complete 09/28/16 Stool Occult Blood (MILI) - Final, Complete FITO ZAMORA Oct 02, 2016 13:03
[2016-10-02] MEDS: guaiFENesin ER 600 MG TAB PO SCH ×2 (13:46→20:08)
[2016-10-02 14:00] VITALS: BP 135/68
[2016-10-02] MEDS: WARFARIN SOD 5 MG TAB PO SCH (17:23)
[2016-10-02] MEDS: PERCOCET 5MG/325MG TAB PO PRN (20:08)
[2016-10-02 22:00] VITALS: BP 123/64
[2016-10-03 06:00] VITALS: BP 123/73
[2016-10-03 06:45] LABS: MEAN CORPUSCULAR HEMOGLOBIN 31.1 pg (27.0-33.0); MEAN CORPUSCULAR VOLUME 88.9 fl (80.0-96.0); RED CELL DISTRIBUTION WIDTH 11.7 % (11.5-14.5); WHITE BLOOD COUNT 5.1 K/mm3 (4.0-10.0)
[2016-10-03 06:54] LABS: INR 1.69
[2016-10-03 07:11] LABS: ANION GAP 7 MEQ/L (8-16); BLOOD UREA NITROGEN 9 MG/DL (7-18); CALCIUM LEVEL 8.6 MG/DL (8.5-10.1); CARBON DIOXIDE LEVEL 29 MEQ/L (21-32); CHLORIDE LEVEL 104 MEQ/L (98-107); CREATININE FOR GFR 1.02 MG/DL (0.70-1.30); GLOMERULAR FILTRATION RATE > 60.0 (>60); GLUCOSE, FASTING 90 MG/DL (70-105); POTASSIUM SERUM 4.4 MEQ/L (3.5-5.1); SODIUM LEVEL 140 MEQ/L (136-145)
[2016-10-03] MEDS: guaiFENesin ER 600 MG TAB PO SCH ×2 (08:56→20:23)
[2016-10-03] MEDS: PERCOCET 5MG/325MG TAB PO PRN ×2 (08:57→20:24)
[2016-10-03] MEDS: DOCUSATE SODIUM 100 MG CAP PO SCH ×2 (08:57→20:23)
[2016-10-03] MEDS: SENOKOT S TAB PO SCH ×2 (08:58→20:23)
--- NOTE | 2016-10-03 11:01 | IPNPDOC ---
Assessment/Plan Date Seen The patient was seen on 10/03/16. 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 Events since last encounter some intermittent chest pains with coughing , no fever or chills, no abdominal pain , nausea or vomiting , no overt bleeding from anywhere. Objective Physical Examination General Exam: Positive: Alert, Cooperative, No Acute Distress Eye Exam: Positive: EOMI ENT Exam: Positive: Atraumatic, Mucous membr. moist/pink Neck Exam: Positive: Supple Chest Exam: Positive: Clear to auscultation, Normal air movement Heart Exam: Positive: Rate Normal, Regular Rhythm, Negative: Murmurs Abdomen Exam: Positive: Soft Extremity Exam: Positive: Normal pulses Neuro Exam: Positive: Normal Speech Psych Exam: Positive: Mental status NL, Mood NL, Oriented x 3 Vital Signs/I&O Vital Signs Date Time Temp Pulse Resp B/P Pulse Ox O2 Delivery O2 Flow Rate FiO2 10/03/16 09:50 18 10/03/16 08:57 Room Air 10/03/16 06:00 96.3 51 123/73 96 I&O- Last 24 Hours up to 6 AM 10/03/16 06:00 Intake Total 2955 ml Balance 2955 ml Laboratory Data Labs 24H Laboratory Tests 2 10/02/16 13:57: Activated Partial Thromboplast Time 87.0H 10/02/16 19:45: Activated Partial Thromboplast Time 73.0H 10/03/16 02:11: Activated Partial Thromboplast Time 54.2H 10/03/16 06:36: Anion Gap 7L, Blood Urea Nitrogen 9, Creatinine 1.02, Sodium Level 140, Potassium Level 4.4, Chloride Level 104, Carbon Dioxide Level 29, Calcium Level 8.6, Glomerular Filtration Rate > 60.0, Prothromb Time International Ratio 1.69 , Prothrombin Time 20.0H 10/03/16 10:07: Activated Partial Thromboplast Time 43.1H CBC/BMP Laboratory Tests 10/03/16 06:36 Calcium Level 8.6, Red Blood Count 4.51, Mean Corpuscular Volume 88.9, Mean Corpuscular Hemoglobin 31.1, Mean Corpuscular Hemoglobin Concent 35.0, Red Cell Distribution Width 11.7 Microbiology Microbiology 10/03/16 Stool Occult Blood (MILI) - Final, Complete 10/01/16 Stool Occult Blood (MILI) - Final, Complete 09/30/16 Stool Occult Blood (MILI) - Final, Complete 09/28/16 Stool Occult Blood (MILI) - Final, Complete SCOTT COHEN MD Oct 03, 2016 11:01
[2016-10-03 14:00] VITALS: BP 113/59
[2016-10-03] MEDS ORDERED: WARFARIN SOD 5 MG TAB PO SCH (17:00)
[2016-10-03] MEDS: HEPARIN DRIP 25,000 UNITS in APPROPRIATE DILUENT 1 EA IV SCH (17:12)
[2016-10-03 22:00] VITALS: BP 117/69
[2016-10-04 00:08] LABS: SJOGREN'S ANTI SS-A <0.2 AI (0.0-0.9); SJOGREN'S ANTI SS-B <0.2 AI (0.0-0.9)
[2016-10-04] MEDS: HEPARIN DRIP 25,000 UNITS in APPROPRIATE DILUENT 1 EA IV SCH (00:57)
[2016-10-04 06:00] VITALS: BP 116/71
[2016-10-04 07:06] LABS: MEAN CORPUSCULAR HEMOGLOBIN 31.4 pg (27.0-33.0); MEAN CORPUSCULAR HGB CONC 35.9 g/dl (32.0-36.5); MEAN CORPUSCULAR VOLUME 87.4 fl (80.0-96.0); RED CELL DISTRIBUTION WIDTH 11.6 % (11.5-14.5); WHITE BLOOD COUNT 6.3 K/mm3 (4.0-10.0)
[2016-10-04 07:23] LABS: ANION GAP 7 MEQ/L (8-16); BLOOD UREA NITROGEN 10 MG/DL (7-18); CALCIUM LEVEL 9.3 MG/DL (8.5-10.1); CARBON DIOXIDE LEVEL 30 MEQ/L (21-32); CHLORIDE LEVEL 104 MEQ/L (98-107); CREATININE FOR GFR 0.95 MG/DL (0.70-1.30); GLOMERULAR FILTRATION RATE > 60.0 (>60); GLUCOSE, FASTING 93 MG/DL (70-105); SODIUM LEVEL 141 MEQ/L (136-145)
[2016-10-04 07:43] LABS: INR 2.15
[2016-10-04] MEDS: guaiFENesin ER 600 MG TAB PO SCH ×2 (07:54→20:07)
[2016-10-04] MEDS: SENOKOT S TAB PO SCH ×2 (07:54→20:07)
[2016-10-04] MEDS: DOCUSATE SODIUM 100 MG CAP PO SCH ×2 (07:54→20:07)
[2016-10-04] MEDS: ACETAMINOPHEN TAB 650MG DOSE (2X325MG) PO PRN ×2 (07:57→14:17)
--- NOTE | 2016-10-04 08:45 | IPNPDOC ---
Assessment/Plan Date Seen The patient was seen on 10/04/16. 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 Events since last encounter no complaints. Objective Physical Examination General Exam: Positive: Alert, Cooperative, No Acute Distress Eye Exam: Positive: EOMI ENT Exam: Positive: Atraumatic, Mucous membr. moist/pink Neck Exam: Positive: Supple Chest Exam: Positive: Clear to auscultation, Normal air movement Heart Exam: Positive: Rate Normal, Regular Rhythm, Negative: Murmurs Abdomen Exam: Positive: Soft Extremity Exam: Positive: Normal pulses Neuro Exam: Positive: Normal Speech Psych Exam: Positive: Mental status NL, Mood NL, Oriented x 3 Vital Signs/I&O Vital Signs Date Time Temp Pulse Resp B/P Pulse Ox O2 Delivery O2 Flow Rate FiO2 10/04/16 06:00 97.5 68 20 116/71 98 10/03/16 20:54 Room Air I&O- Last 24 Hours up to 6 AM 10/04/16 06:00 Intake Total 3076 ml Output Total 1550 ml Balance 1526 ml Laboratory Data Labs 24H Laboratory Tests 2 10/03/16 10:07: Activated Partial Thromboplast Time 43.1H 10/03/16 17:52: Activated Partial Thromboplast Time 54.4H 10/04/16 00:28: Activated Partial Thromboplast Time 56.3H 10/04/16 06:53: Activated Partial Thromboplast Time > 240.0*H, Anion Gap 7L, Blood Urea Nitrogen 10, Creatinine 0.95, Sodium Level 141, Potassium Level 4.0, Chloride Level 104, Carbon Dioxide Level 30, Calcium Level 9.3, Glomerular Filtration Rate > 60.0, Prothromb Time International Ratio 2.15, Prothrombin Time 24.1H CBC/BMP Laboratory Tests 10/04/16 06:53 Calcium Level 9.3, Red Blood Count 4.84, Mean Corpuscular Volume 87.4, Mean Corpuscular Hemoglobin 31.4, Mean Corpuscular Hemoglobin Concent 35.9, Red Cell Distribution Width 11.6 Microbiology Microbiology 10/03/16 Stool Occult Blood (MILI) - Final, Complete 10/01/16 Stool Occult Blood (MILI) - Final, Complete 09/30/16 Stool Occult Blood (MILI) - Final, Complete 09/28/16 Stool Occult Blood (MILI) - Final, Complete SCOTT COHEN MD Oct 04, 2016 08:45
[2016-10-04 14:00] VITALS: BP 115/58
[2016-10-04] MEDS ORDERED: WARFARIN SOD 7.5 MG TAB PO SCH (17:00)
[2016-10-04] MEDS: PERCOCET 5MG/325MG TAB PO PRN (20:08)
[2016-10-04 22:15] VITALS: BP 125/65
[2016-10-05 04:00] VITALS: BP 117/73
[2016-10-05] MEDS: PERCOCET 5MG/325MG TAB PO PRN (04:47)
[2016-10-05 07:08] LABS: MEAN CORPUSCULAR HEMOGLOBIN 30.9 pg (27.0-33.0); MEAN CORPUSCULAR HGB CONC 34.2 g/dl (32.0-36.5); MEAN CORPUSCULAR VOLUME 90.3 fl (80.0-96.0); RED CELL DISTRIBUTION WIDTH 12.5 % (11.5-14.5)
[2016-10-05 07:09] LABS: INR 3.08
[2016-10-05 07:16] LABS: ANION GAP 6 MEQ/L (8-16); BLOOD UREA NITROGEN 12 MG/DL (7-18); CALCIUM LEVEL 9.4 MG/DL (8.5-10.1); CARBON DIOXIDE LEVEL 31 MEQ/L (21-32); CHLORIDE LEVEL 104 MEQ/L (98-107); CREATININE FOR GFR 1.04 MG/DL (0.70-1.30); GLOMERULAR FILTRATION RATE > 60.0 (>60); GLUCOSE, FASTING 93 MG/DL (70-105); POTASSIUM SERUM 4.4 MEQ/L (3.5-5.1); SODIUM LEVEL 141 MEQ/L (136-145)
[2016-10-05] MEDS ORDERED: PERCOCET PO (07:24)
[2016-10-05] MEDS ORDERED: COUM1TAB17 PO (07:24)
[2016-10-05] MEDS: guaiFENesin ER 600 MG TAB PO SCH (09:03)
[2016-10-05] MEDS: SENOKOT S TAB PO SCH (09:03)
[2016-10-05] MEDS: DOCUSATE SODIUM 100 MG CAP PO SCH (09:04)
[2016-10-05 09:05] VITALS: BP 135/80
--- NOTE | 2016-10-05 12:39 | DSES ---
DATE OF ADMISSION: 09/28/2016 DATE OF DISCHARGE: 10/05/2016 PRIMARY CARE PROVIDER: Teto Cormier DISCHARGE DIAGNOSES: 1. Pulmonary embolism. 2. Pulmonary infarction. 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 In the last one month, he had driven almost 7,000 miles and often he drove for up to a six hour stretch. He came in to the emergency room for acute onset chest pain and extreme shortness of breath. The patient was found to have a right sided pulmonary embolism. The patient was started on heparin infusion with Coumadin bridging. Coagulation work up was negative. It was felt that his pulmonary embolism is due to his long car drives and poor oral intake of fluids. At present, the patient has two therapeutic INR levels. The patient is functioning at baseline. His chest pain improved a lot and the patient is going to be discharged home in a stable condition. PHYSICAL EXAMINATION: Temperature 96.9, pulse 62, respiratory rate 18, blood pressure 135/80, pulse oximetry 97% in room air. General: The patient is awake, alert and oriented times three, sitting up in bed in no acute distress. HEENT: Normocephalic, atraumatic. Moist mucous membranes. Anicteric eyes. CHEST: Clear to auscultation. CARDIOVASCULAR: S1, S2, regular. No rub, murmur or gallop. ABDOMEN: Soft. Nontender. Bowel sounds present. EXTREMITIES: No edema. LABORATORY DATA: WBC 7, hemoglobin 15, platelets 245. Sodium 141, potassium 4.4, chloride 104, bicarbonate 31, BUN 12, creatinine 1, glucose 93, calcium 9.4. INR 3. Vascular ultrasound of the lower extremities was negative for deep vein thrombosis. CT angio of the chest showed segmental branches pulmonary emboli in the right lower lobe associated with small right pleural effusion. Associated subpleural consolidation of the right lower lobe suggestive of developing infarction. DISPOSITION: The patient is discharged home in stable condition. DISCHARGE INSTRUCTIONS: Patient to follow up with primary care provider within one week. Patient to get an INR check on 10/06/2016. Regular diet. Activity as tolerated. Patient should be evaluated by primary care provider before resuming activity.
== END 2016-10-05 09:45 | disposition home or self-care (01) | DRG 176 ==
LOC: M ED 02:55 → M ED INP 07:47 → M MSPAV 12:22 → M PED 10-04 22:08
PROVIDERS: ADMIT Internal Medicine; ATTEND Internal Medicine Nephrology
DX: I26.99 Other pulmonary embolism without acute cor pulmonale (principal); Z83.3 Family history of diabetes mellitus; Z82.49 Family history of ischemic heart disease and other diseases of the circulatory system; Z84.89 Family history of other specified conditions

== ENCOUNTER → 2017-03-20 | Outpatient (CLI) | payer OTHER ==
[~2017-03-20] MED LIST: COUM1TAB17 PO; PERCOCET PO; TYLE1TAB5 PO
== END ==
LOC: M WUC 09:59
PROVIDERS: ATTEND Physician Assistant
DX: Z02.5 Encounter for examination for participation in sport (principal)